=== PATIENT | female | born 1975 | race Caucasian/White ===

== ENCOUNTER → 2018-03-06 13:59 | Outpatient (CLI) | payer OTHER, SELFPAY ==
[2018-03-11 11:31] LABS: HPV Reflexed? NOT INDICATED
--- OUTSIDE RECORDS SUMMARY | 2018-06-10 05:09 | XMS RPT_ITS ---
:1975 Author Organization [facility] Care Team Providers Name Role Phone Margarette Cadena Attending Unavailable Primay Care Physicia, No Primary Care Unavailable PROBLEMS PROBLEMS DATE TYPE CONDITION / CODE ATTENDING STATUS SOURCE 03/06/2018 Unknown Z12.4 - Margarette Cadena Active [place] Encounter for Community screening for Hospital malignant Repository neoplasm of cervix / Z12.4(ICD-10) PROCEDURES PROCEDURES No Procedure Records FoundRESULTS RESULTS PAP I-G W/RFX HRHPV Collected: 03/06/2018 Status: F Source: [facility] 1:15 PM [facility] REPOSITORY Order Comment: CYTOLOGY INFORMATION: - CLINICAL INFORMATION: - DATE LMP/MENOPAUSE: 02/18/18 LMP - COLLECTION VIAL: Thin Prep Vial - CURVE SAW OPERATOR SOURCE: CERVICAL/ENDOCERVICAL - COLLECTION TECHNIQUE: BRUSH/SPATULA Specimen Comment: [id number] Specimen Comment: Source.............Cervix;Endocervix Specimen Comment: LMP / Prev Treat...[id number] Specimen Comment: No. of containers..01 ThinPrep Vial TYPE CODE TESTS RESULT OUT OF RANGE REFERENCE UNITS LAB L7400.0800 . Normal DIAGN Comment Result Comment: NEGATIVE FOR INTRAEPITHELIAL LESION AND MALIGNANCY. LAB L7400.0900 . Normal ADEQ Comment Result Comment: Satisfactory for evaluation. No endocervical component is identified. LAB L7400.1400 . Normal PERFORM Comment Result Comment: Radha Mistry Pricing Coordinator LAB L7400.2575 . Normal TEST METHOD Comment Result Comment: This liquid based ThinPrep(R) pap test was screened with the use of an image guided system. LAB L7400.2600 . Normal . COMM LAB L7400.2700 . Normal PAPSMR Comment Result Comment: The Pap smear is a screening test designed to aid in the detection of premalignant and malignant conditions of the uterine cervix. It is not a diagnostic procedure and should not be used as the sole means of detecting cervical cancer. Both false-positive and false-negative reports do occur. LAB L7400.2800 . Normal HPV RFLX Comment Result Comment: The HPV DNA reflex criteria were not met with this specimen result therefore, no HPV testing was performed. Performed at: - [facility] [id number] [place] Dipper: Amanda Mcguire MD, Phone: [phone] Performed By: #### L7400.0350 #### [facility] (refer to report for specific site) refer to report for address and phone number ALLERGIES ALLERGIES No Allergies Records FoundENCOUNTERS ENCOUNTERS ADMIT/DISCHARGE ACCOUNT ADMITTING ENCOUNTER LOCATION SOURCE NUMBER CLASS 03/06/2018 [id number] Ambulatory [place] [facility] ing:[facility] Repository PAYERS PAYERS ENCOUNTER GUARANTOR PAYER SUBSCRIBER SOURCE 03/06/2018 [place] [id number] [facility] [id number] Number: Repository [id number]: [phone] (HP) Date:[id number] [address] [place], [place] [id number]: 03/06/2018 [facility]SELF PAY [facility] Number: Effective Repository Date:2018-03-06
== END ==
PROVIDERS: Visit Provider Obstetrics & Gynecology
DX: Z12.4 Encounter for screening for malignant neoplasm of cervix (principal)
CPT/HCPCS: 88175; G0145

== ENCOUNTER → 2018-05-05 07:06 | Outpatient (CLI) | payer OTHER, SELFPAY ==
--- NOTE | 2018-05-05 07:09 | BI_ITS ---
MAMMOGRAPHY - BILATERAL SCREENING REASON FOR EXAM: Female, 42 years old. Routine annual screening examination. PERTINENT HISTORY: Aunt with breast cancer. TECHNIQUE: Digital bilateral breast kristin (3D mammographic acquisition) in the CC and MLO projections. 2-D mediolateral oblique (MLO) and craniocaudad (CC) views of both breasts were obtained. CAD: Full Field Digital Mammography with Computer Added Detection was performed. COMPARISON: Comparison is made with prior study dated July 22, 2016 and May 17, 2015. FINDINGS: Breast Composition: The breasts are heterogeneously dense, which may obscure small masses. There are no dominant masses or suspicious calcifications. No other significant abnormalities are identified. There has been no significant change since the prior study. BI/SCREENING MAMM (CAD), BILAT IMPRESSION: Stable bilateral screening mammogram. Yearly follow-up mammogram recommended. (A) ASSESSMENT CATEGORY: BIRADS Category 1: Negative. A letter regarding these results will be sent to the patient by the facility within 30 days. Approximately 10% of breast cancers are not detected by mammography. A normal mammogram should not delay biopsy of a clinically suspicious abnormality. [id number] Electronically Signed: Juan R Dimas MD at 9:02 EST , Service support ,
== END ==
PROVIDERS: Referring Provider Obstetrics & Gynecology; Visit Provider Obstetrics & Gynecology
DX: Z12.31 Encounter for screening mammogram for malignant neoplasm of breast (principal)
CPT/HCPCS: 77063; 77067

== ENCOUNTER → 2021-07-30 | Outpatient (CLI) | payer OTHER, SELFPAY ==
[2021-07-30 12:29] LABS: Absolute Lymphocyte Count 1.14 X10^3/uL (0.83-4.51); Absolute Neutrophil Count 2.5 X10^3/uL (2.0-7.7); Basophil# 0.06 X10^3/uL; Basophil% 1.4 % (0-1); Eosinophils% 2.4 % (0-5); Hematocrit 40.1 % (37-47); Hemoglobin 13.2 g/dL (12.0-15.0); Lymphocyte # 1.14 X10^3/ul (0.83-4.51); Lymphocyte % 26.9 % (19-41); Mean Corp Hgb Conc 32.9 g/dL (32-36); Mean Corpuscular Hgb 31.3 pg (27.0-32.0); Mean Platelet Vol. 10.5 fl (6.2-12.0); Monocyte# 0.39 X10^3/uL; Monocyte% 9.2 % (0-10); NRBC Flagged by Analyzer 0 % (0-5); Neutrophil # 2.54 X10^3/uL (2.7-7.7); Neutrophil % 59.9 % (47-70); Platelet Count 246 K/mm3 (150-450); RBC Distribution Width CV 12.1 % (11.6-14.6); RBC Distribution Width SD 41.9 fl (35.1-43.9); Red Blood Count 4.22 M/mm3 (4.2-5.4); White Blood Count 4.2 K/mm3 (4.4-11.0)
[2021-07-30 12:46] LABS: Vitamin B12 472 pg/mL (211-911); Vitamin D,25 Hydroxy 25.9 ng/mL
[2021-07-30 14:10] LABS: ALB/GLOB Ratio 1.2 RATIO (0.9-2.4); AST(SGOT) 18 U/L (15-37); Alanine Aminotransfer ALT/SGPT 27 U/L (13-56); Albumin, Serum 3.9 g/dL (3.2-5.0); Alkaline Phosphatase 63 U/L (45-117); Anion Gap 5 (5-15); BUN 10 mg/dL (7-18); BUN/Creat Ratio 12.9 RATIO (10-20); Calcium,Total 8.9 mg/dL (8.5-10.1); Chloride 110 mmol/L (98-107); Creatinine, Serum 0.77 mg/dL (0.55-1.02); EST Glomerular Filtration Rate 85 mL/min (>60); Est Glom Filt Rate - Afr Amer 103 mL/min (>60); Globulin 3.2 g/dL (2.2-4.2); Glucose 94 mg/dL (74-106); Potassium 4.2 mmol/L (3.5-5.1); Protein, Total 7.1 g/dL (6.4-8.2); Sodium Level 141 mmol/L (136-145); Thyroid Stim Hormone (TSH) 0.88 uIU/mL (0.358-3.74)
== END | disposition home or self-care (01) ==
LOC: BIMLAB 10:51
PROVIDERS: PCP Internal Medicine; Visit Provider Internal Medicine
DX: F32.A Depression, unspecified (principal); F41.9 Anxiety disorder, unspecified; E55.9 Vitamin D deficiency, unspecified
CPT/HCPCS: 36415; 80053; 82306; 82607; 84443; 85025

== ENCOUNTER → 2021-10-02 | Outpatient (CLI) | payer OTHER, SELFPAY ==
[2021-10-07 10:36] LABS: HPV APTIMA, High Risk Negative (Negative)
== END | disposition home or self-care (01) ==
LOC: LABSPEC 16:09
PROVIDERS: PCP Internal Medicine; Visit Provider Nurse Practitioner Women's Health
DX: Z01.419 Encounter for gynecological examination (general) (routine) without abnormal findings (principal)
CPT/HCPCS: 87624; 88175; G0145

== ENCOUNTER → 2021-11-22 | Outpatient (CLI) | payer OTHER, SELFPAY ==
--- NOTE | 2021-11-22 13:11 | BI_ITS ---
MAMMOGRAPHY - BILATERAL SCREENING REASON FOR EXAM: Female, 45 years old. Routine annual screening examination. PERTINENT HISTORY: Aunt with breast cancer. TECHNIQUE: Digital bilateral breast gabino (3D mammographic acquisition) in the CC and MLO projections. 2-D mediolateral oblique (MLO) and craniocaudad (CC) views of both breasts were obtained. CAD: Full Field Digital Mammography with Computer Added Detection was performed. COMPARISON: Comparison is made with prior study of 05/05/2018 and 07/22/2016. FINDINGS: Breast Composition: The breasts are heterogeneously dense, which may obscure small masses. There are no dominant masses or suspicious calcifications. No other significant abnormalities are identified. There has been no significant change since the prior study. BI/SCRN MAMM (CAD)W/GABINO BILAT IMPRESSION: Stable bilateral screening mammogram. Yearly follow-up mammogram recommended. (A) ASSESSMENT CATEGORY: BIRADS Category 1: Negative. A letter regarding these results will be sent to the patient by the facility within 30 days. Approximately 10% of breast cancers are not detected by mammography. A normal mammogram should not delay biopsy of a clinically suspicious abnormality. [id number] Electronically Signed: Juan R Dimas MD at 13:49 EDT ,
== END | disposition home or self-care (01) ==
LOC: OPBI 13:10
PROVIDERS: PCP Internal Medicine; Visit Provider Nurse Practitioner Women's Health
DX: Z12.31 Encounter for screening mammogram for malignant neoplasm of breast (principal)
CPT/HCPCS: 77063; 77067

== ENCOUNTER → 2022-11-13 | Outpatient (CLI) | payer OTHER, SELFPAY ==
[2022-11-23 03:07] LABS: Testosterone Free 0.9 pg/mL (0.0-4.2)
== END | disposition home or self-care (01) ==
LOC: PAVLAB 15:15
PROVIDERS: PCP Internal Medicine; Referring Provider Nurse Practitioner Women's Health; Visit Provider Nurse Practitioner Women's Health
DX: L68.0 Hirsutism (principal)
CPT/HCPCS: 36415; 82627; 84402; 82626

== ENCOUNTER → 2022-12-19 | Outpatient (CLI) | payer OTHER, SELFPAY ==
--- NOTE | 2022-12-19 07:53 | BI_ITS ---
MAMMOGRAPHY - BILATERAL SCREENING REASON FOR EXAM: Female, 47 years old. Routine annual screening examination. PERTINENT HISTORY: Aunt with breast cancer. TECHNIQUE: Digital bilateral breast gabino (3D mammographic acquisition) in the CC and MLO projections. 2-D mediolateral oblique (MLO) and craniocaudad (CC) views of both breasts were obtained. CAD: Full Field Digital Mammography with Computer Added Detection was performed. COMPARISON: Comparison is made with prior examination of November 22, 2021 and May 05, 2018. FINDINGS: Breast Composition: The breasts are heterogeneously dense, which may obscure small masses. There are no dominant masses or suspicious calcifications. No other significant abnormalities are identified. There has been no significant change since the prior study. BI/SCRN MAMM (CAD)W/GABINO BILAT IMPRESSION: Stable bilateral screening mammogram. Yearly follow-up mammogram recommended. (A) ASSESSMENT CATEGORY: BIRADS Category 1: Negative. A letter regarding these results will be sent to the patient by the facility within 30 days. Approximately 10% of breast cancers are not detected by mammography. A normal mammogram should not delay biopsy of a clinically suspicious abnormality. [id number] Electronically Signed: Juan R Dimas MD at 10:38 EDT ,
== END | disposition home or self-care (01) ==
LOC: OPBI 07:50
PROVIDERS: PCP Internal Medicine; Referring Provider Nurse Practitioner Women's Health; Visit Provider Nurse Practitioner Women's Health
DX: Z12.31 Encounter for screening mammogram for malignant neoplasm of breast (principal); Z80.3 Family history of malignant neoplasm of breast
CPT/HCPCS: 77063; 77067

== ENCOUNTER → 2023-11-25 | Outpatient (CLI) | payer OTHER, SELFPAY ==
[2023-11-25 12:25] LABS: Absolute Lymphocyte Count 1.42 X10^3/uL (0.83-4.51); Absolute Neutrophil Count 3.2 X10^3/uL (2.0-7.7); Basophil# 0.06 X10^3/uL; Basophil% 1.2 % (0-1); Eosinophils% 1.9 % (0-5); Hematocrit 38.2 % (37-47); Hemoglobin 12.7 g/dL (12.0-15.0); Lymphocyte # 1.42 X10^3/ul (0.83-4.51); Lymphocyte % 27.3 % (19-41); Mean Corp Hgb Conc 33.2 g/dL (32-36); Mean Corpuscular Hgb 31.1 pg (27.0-32.0); Mean Corpuscular Volume 93.4 fL (81-99); Mean Platelet Vol. 10.4 fl (6.2-12.0); Monocyte# 0.42 X10^3/uL; Monocyte% 8.1 % (0-10); NRBC Flagged by Analyzer 0 % (0-5); Neutrophil # 3.19 X10^3/uL (2.7-7.7); Neutrophil % 61.3 % (47-70); Platelet Count 221 K/mm3 (150-450); RBC Distribution Width SD 41.1 fl (35.1-43.9); Red Blood Count 4.09 M/mm3 (4.2-5.4); White Blood Count 5.2 K/mm3 (4.4-11.0)
[2023-11-25 12:38] LABS: Vitamin D,25 Hydroxy 31.8 ng/mL
[2023-11-25 12:51] LABS: ALB/GLOB Ratio 1.1 RATIO (0.9-2.4); AST(SGOT) 14 U/L (15-37); Alanine Aminotransfer ALT/SGPT 19 U/L (13-56); Albumin, Serum 3.7 g/dL (3.2-5.0); Alkaline Phosphatase 82 U/L (45-117); Anion Gap 3 (5-15); BUN 10 mg/dL (7-18); Calcium,Total 9.4 mg/dL (8.5-10.1); Chloride 109 mmol/L (98-107); Creatinine, Serum 0.67 mg/dL (0.55-1.02); EST Glomerular Filtration Rate 100 mL/min (>60); Est Glom Filt Rate - Afr Amer 121 mL/min (>60); Globulin 3.4 g/dL (2.2-4.2); Glucose 90 mg/dL (74-106); Potassium 3.9 mmol/L (3.5-5.1); Protein, Total 7.1 g/dL (6.4-8.2); Sodium Level 139 mmol/L (136-145); T4 Free Direct 0.96 ng/dL (0.76-1.46)
== END | disposition home or self-care (01) ==
PROVIDERS: PCP Nurse Practitioner Family; Referring Provider Nurse Practitioner Family; Visit Provider Nurse Practitioner Family
DX: Z13.21 Encounter for screening for nutritional disorder (principal); N91.2 Amenorrhea, unspecified; Z13.29 Encounter for screening for other suspected endocrine disorder
CPT/HCPCS: 36415; 80053; 82306; 82533; 84439; 84443; 85025

== ENCOUNTER → 2023-12-22 | Outpatient (CLI) | payer OTHER, SELFPAY ==
--- NOTE | 2023-12-22 09:56 | BI_ITS ---
MAMMOGRAPHY - BILATERAL SCREENING 3-D TOMOSYNTHESIS REASON FOR EXAM: Female, 48 years old. screening mammogram for breast cancer PERTINENT HISTORY: No significant family history. TECHNIQUE: 2-D mammograms and 3-D Tomosynthesis of the breast (s) were performed. CAD was performed. COMPARISON: 12/19/2022 FINDINGS: The breast composition is heterogeneously dense that can obscure small breast masses. Scattered benign calcifications are seen. No dense spiculated masses or suspicious microcalcifications are identified. No architectural distortion is identified. There is no skin thickening or retraction. There has been no significant change since the prior study. BI/SCRN MAMM (CAD)W/GABINO BILAT IMPRESSION: No mammographic signs of malignancy. Routine yearly mammograms recommended. ASSESSMENT CATEGORY: BIRADS Category 1: Negative. A letter regarding these results will be sent to the patient by the facility within 30 days. FOLLOW UP RECOMMENDATION: Yearly follow up mammogram recommended. (A) Approximately 10% of breast cancers are not detected by mammography. A normal mammogram should not delay biopsy of a clinically suspicious abnormality. Electronically Signed: Jack Bradford MD at 21:18 EDT ,
== END | disposition home or self-care (01) ==
LOC: OPBI 09:56
PROVIDERS: PCP Nurse Practitioner Family; Referring Provider Nurse Practitioner Family; Visit Provider Nurse Practitioner Family
DX: Z12.31 Encounter for screening mammogram for malignant neoplasm of breast (principal)
CPT/HCPCS: 77063; 77067

== ENCOUNTER → 2024-10-25 | Outpatient (CLI) | payer SELFPAY ==
--- NOTE | 2024-10-25 17:08 | RAD_ITS ---
PROCEDURE: ELBOW MIN 3 VIEWS 10/25/2024 REASON FOR EXAM: PAIN TECHNIQUE: ELBOW MIN 3 VIEWS COMPARISON: None. FINDINGS: Normal radiocapitellar articulation. Normal ulnotrochlear articulation. Normal distal humerus and epicondyles. Normal proximal ulna and olecranon process. Normal proximal radius. RAD/Elbow min 3 Views IMPRESSION: No evidence for acute abnormality. Reading Location: [facility]
[2024-10-25 17:09] LABS: Hematocrit 34.8 % (37-47); Hemoglobin 11.5 g/dL (12.0-15.0); Immature Granulocytes Count 0.020 X10^3/uL (0.0-0.0); Mean Corp Hgb Conc 33.0 g/dL (32-36); Mean Corpuscular Volume 94.1 fL (81-99); Mean Platelet Vol. 10.0 fl (6.2-12.0); NRBC Flagged by Analyzer 0 % (0-5); Platelet Count 273 K/mm3 (150-450); RBC Distribution Width CV 12.8 % (11.6-14.6); RBC Distribution Width SD 44.0 fl (35.1-43.9); Red Blood Count 3.70 M/mm3 (4.2-5.4); White Blood Count 6.6 K/mm3 (4.4-11.0)
--- NOTE | 2024-10-25 17:10 | RAD_ITS ---
PROCEDURE: KNEE 4 OR MORE VIEWS 10/25/2024 REASON FOR EXAM: PAIN TECHNIQUE: KNEE 4 OR MORE VIEWS COMPARISON: None. FINDINGS: Prominent prepatellar/infrapatellar soft tissue edema and swelling. Normal medial femorotibial compartment. Normal lateral femorotibial compartment. Normal patellofemoral articulation. Normal visualized distal femur. Normal visualized proximal tibia and fibula. Normal proximal tibiofibular articulation. RAD/Knee 4 or More Views IMPRESSION: Prominent prepatellar/infrapatellar soft tissue edema and swelling. Reading [facility]
[2024-10-25 18:01] LABS: AST(SGOT) 19 U/L (<=31); Alanine Aminotransfer ALT/SGPT 9 U/L (<=34); Albumin, Serum 4.7 g/dL (3.5-5.0); Alkaline Phosphatase 115 U/L (35-104); Anion Gap 11 (5-15); BUN 10 mg/dL (4-19); BUN/Creat Ratio 13.3 RATIO (10-20); Calcium,Total 9.4 mg/dL (7.6-11.0); Carbon Dioxide 24.5 mmol/L (21.0-32.0); Chloride 106 mmol/L (98-108); Globulin 2.6 g/dL (2.2-4.2); Glucose 84 mg/dL (70-99); Potassium 4.0 mmol/L (3.3-5.1)
--- OUTSIDE RECORDS SUMMARY | 2024-10-25 22:59 | XMS RPT_ITS | CCD ---
Author Organization [facility] Care Team Providers Care Building Pressure Washer Name Role Phone Claudia Sin Unavailable Gravius, Neisha Unavailable Unavailable Unavailable Unavailable Care Physician, No Primary Referring Provider Un available Dr. Becky Pereyra Primary Care Provider [phone] Dr. Becky Pereyra Attending Provider [phone] Vanesa METER REPAIR SHOP SUPERVISOR, METER REPAIR SHOP SUPERVISOR-Mallika Cordoba Attending Provider [phone] Jenni Greene CNP Unavailable Jenni Greene CNP Unavailable Gravius BLACK OXIDE COATING EQUIPMENT TENDER, Neisha Unavailable Unavailable Claudia Sin DO Unavailable Unavailable Unavailable Friend, Dr. Schwab Unavailable [phone] Jinny RAMON, Alecia Unavailable Unavailable Jenni Greene CNP Attending Unavailable Jenni Greene CNP Consulting Unavailable Zulma Godinez MA Unavailable Unavailable Dr. Becky Pereyra Primary Care Provider [phone] Dr. Becky Pereyra Referring Provider [phone] Vanesa METER REPAIR SHOP SUPERVISOR, SHAHRAM-Mallika Cordoba Attending Provider [phone] Sue Jay Attending Unavailable Becky Pereyra Referring Unavailable Becky Pereyra Primary Care Unavailable Sue Jay Attending Unavailable Jenni Greene Primary Care Unavailable Sue Jay Referring Unavailable Sue Jay Referring Unavailable Sue Jay Attending Unavailable Jenni Greene Primary Care Unavailable Allergies Allergy Classification Reported Allergen(s) Allergy Type Date of Onset Reaction(s) Facility (1 source) Latex Propensity to adverse reactions 3 Rash [facility] (1 source) Latex Drug allergy (disorder) 4 [facility] Repository Medications Current Medications Medication Drug Class(es) Dates Sig (Normalized) Sig (Original) DULoxetine 60 mg delayed release oral capsule (20 sources) Serotonin and Norepinephrine Reuptake Inhibitor Start: 11-13-2022 take 1 capsule by mouth once daily Duloxetine (Cymbalta) 60 mg capsule,delayed release(DR/EC) Active 60 MG PO DAILY November 13, 2022 12:00am Start: 05-15-2022 End: 05-15-2022 Cymbalta 60 mg oral capsule, delayed release (enteric coated) [address] Part qhs for 0 days Quantity: 30 {Capsule} Refills: 0 Ordered: 15-May-2022 Alecia Stearns LPN Start : 15-May-2022 End : 15-May-2022 Inactive Start: 06-13-2010 End: 10-19-2010 CYMBALTA, 60MG (Oral Capsule Delayed Release Particles) [address] Part qhs for 0 days Quantity: 30 {Capsule_DR_Part} Refills: 0 Ordered: 19-Oct-2010 Ying Monroe Start : 13-Jun-2010 End : 19-Oct-2010 Inactive Start: 05-17-2010 End: 06-13-2010 CYMBALTA, 30MG (Oral Capsule Delayed Release Particles) [address] Part qd for 0 days Quantity: 7 {Capsule_DR_Part} Refills: 0 Ordered: 13-Jun-2010 Sinai Ward RN Start : 17-May-2010 End : 13-Jun-2010 Inactive Completed/Discontinued Medications Medication Drug Class(es) Dates Sig (Normalized) Sig (Original) citalopram 40 mg oral tablet (7 sources) Serotonin Reuptake Inhibitor Start: 11-05-2021 End: 11-13-2022 take 40 mg by mouth once daily Citalopram Discontinued 40 MG PO DAILY October 28, 2022 12:27pm November 13, 2022 2:54pm Start: 10-02-2021 End: 11-05-2021 take 20 mg by mouth once daily Citalopram Discontinued 20 MG PO DAILY October 02, 2021 12:00am November 05, 2021 11:38am ergocalciferol 1.25 mg oral capsule (10 sources) Provitamin D2 Compound Start: 05-21-2010 End: 03-12-2011 take 1 capsule by mouth every week [id number] (Oral Capsule) 1 Capsule q wk for 0 days Quantity: 4 {Capsule} Refills: 3 Ordered: 12-Mar-2011 HEAVEN Ingram LPN Start : 21-May-2010 End : 12-Mar-2011 Inactive esomeprazole 40 mg delayed release oral capsule (10 sources) Proton Pump Inhibitor Start: 03-14-2011 End: 03-29-2011 NEXIUM, 40MG (Oral Capsule Delayed Release) [address] qd for 15 days Refills: 0 Ordered: 01-Apr-2011 Claudia Sin DO Start : 14-Mar-2011 End : 29-Mar-2011 Inactive Xhmlcwh-Qtvj-Tzd-Lelia er-Hops-Lm (1 source) Start: 06-07-2022 End: 11-13-2022 Zcjhznq-Metw-Dfx-V zhhv-Dcyf-Vp Discontinued CAP PO June 07, 2022 12:00am November 13, 2022 2:47pm progesterone 200 mg oral capsule (10 sources) Progesterone PROMETRIUM, 200M G (Oral Capsule) uad prn (200 MG) Inactive Comments: Dr. Cadena Comment on above: Dr. Cadena S-Adenosylmethionine -U72-Hm-C6 (2 sources) Start: 10-02-2021 End: 11-13-2022 S-Adenosylmethioni fu-L51-Ax-B6 Discontinued TABLET PO October 02, 2021 12:00am November 13, 2022 2:47pm Start: 10-02-2021 S-Adenosylmeth uiehlg-O35-Zh-B6 Active TABLET PO October 02, 2021 12:00am sertraline 25 mg oral tablet (10 sources) Serotonin Reuptake Inhibitor Start: 10-19-2010 End: 03-12-2011 take 1 tablet by mouth once daily ZOLOFT, 25MG (Oral Tablet) 1 Tablet QD for 0 days Quantity: 30 {Tablet} Refills: 3 Ordered: 12-Mar-2011 HEAVEN Ingram LPN Start : 19-Oct-2010 End : 12-Mar-2011 Inactive vitamin b12 1 mg oral capsule (2 sources) Vitamin B12 Start: 10-02-2021 End: 11-13-2022 take 1000 ug by mouth every month Cyanocobalamin (Vitamin B-12) Discontinued 1000 MCG PO EVERY MONTH October 02, 2021 12:00am November 13, 2022 2:47pm NEGATED: Highlighted row has not occurred!drug or medication (5 sources) No Known Histori dwight Medications Problems Active Problems Problem Classification Problem Date Documented Date Episodic/Chronic Abdominal pain (20 sources) Generalized abdominal pain; Translations: [Abdominal pain, acute, generalized] Resolved: 05-14-2022 09-02-2018 Episodic Comment on above: ruq and epigastrum - - denies any more stress and still nausea and pain assoc wiht foodceliac and specialty lab still pending Anxiety disorders (20 sources) Acute stress disorder; Translations: [Mixed anxiety and depressive disorder] 09-02-2018 Chronic Malaise and fatigue (20 sources) Fatigue; Translations: [Fatigue] 09-02-2018 Episodic Comment on above: pt on hormones and a drenal builders with shriner-- that helped in past so will resume but right now so nausea hasnt taken any pills Menstrual disorders (1 source) Amenorrhea, unspecified; Translations: [Amenorrhea, unspecified] Onset: 11-25-2023 Chronic Mood disorders (20 sources) Depressive disorder; Translations: [Depressive disorder] 09-02-2018 Chronic Comment on above: has been stable. Win ter seems to be worse. Labile. get some vitamin lev els, keep on celexa - sent refill-no med adjustments now, but will consider if does not improve. no suicidal ideationshas been stable. Winter seems to be worse. Labile. Nutritional deficiencies (20 sources) Vitamin D deficiency; Translations: [Vitamin D deficiency, unspecified] 09-02-2018 Chronic Nutritional deficiencies (3 sources) Vitamin deficiency; Translations: [Vitamin deficiency, unspecified] 07-09-2021 Episodic Other ear and sense organ disorders (2 sources) Bilateral hearing loss; Translations: [Hearing loss of both ears due to cerumen impaction] 09-16-2018 Chronic Other ear and sense organ disorders (14 sources) Otalgia, bilateral; Translations: [Bilateral earache] Resolved: 05-14-2022 09-16-2018 Episodic Other ear and sense organ disorders (10 sources) Bilateral hearing loss; Translations: [Hearing loss of both ears due to cerumen impaction] Resolved: 05-14-2022 09-16-2018 Episodic Other ear and sense organ disorders (2 sources) Excessive cerumen in ear canal ; Translations: [Ceruminosis, bilateral] 07-24-2022 Episodic Comment on above: looked in ears post multiple irrigations. clear but appears to have possible cholesteatoma vs scarring? some bubbles but suspect d/t solution infused. call if any issues Other hematologic conditions (6 sources) History of anemia; Translations: [History of anemia] 05-15-2022 Episodic Other non-traumatic joint disorders (4 sources) Hip pain; Translations: [Hip pain] 05-17-2022 Episodic Comment on above: conservative mgmt - try stretching, light exercise, core strengthening, if still bothering her then would get baseline lumbar and hip xraystylenol and ibuprofen for pain if no contraindications. Other nutritional; endocrine; and metabolic disorders (7 sources) Overweight in adulthood with body mass index of 25 or more but less than 30; Translations: [BMI 25.0-25.9,adult] 05-15-2022 Episodic Other screening for suspected conditions (not mental disorders or infectious disease) (20 sources) Patient encounter status; Translations: [Encounter for screening for malignant neoplasm of colon] Onset: 11-25-2023 09-16-2018 Episodic Other skin disorders (1 source) Hirsutism; Translations: [Hirsutism] 11-13-2022 Episodic Other skin disorders (1 source) Hirsutism; Translations: [Hirsutism] 11-13-2022 Episodic Residual codes; unclassified (19 sources) Body mass index (BMI) 23.0-23.9, adult; Translations: [Body mass index 20-24 - normal] Resolved: 05-15-2022 09-02-2018 Episodic Residual codes; unclassified (3 sources) H/O: miscarriage; Translations: [Personal history of other complications of , childbirth and the puerperium] 07-30-2021 Episodic Residual codes; unclassified (3 sources) History of operative procedure on foot; Translations: [Other specified postprocedural states] 07-30-2021 Episodic Residual codes; unclassified (3 sources) H/O: stillbirth; Translations: [Personal history of other complications of , childbirth and the puerperium] 07-30-2021 Episodic Screening and history of mental health and substance abuse codes (7 sources) Ex-smoker; Translations: [Former smoker] 05-15-2022 Episodic Spondylosis; intervertebral disc disorders; other back problems (20 sources) Lumbago; Translations: [Low back pain without sciatica, unspecified back pain laterality] 09-02-2018 Episodic Comment on above: cx negative from dr prisca valle [facility] [place] Substance-related disorders (20 sources) Smoker; Translations: [Nondependent mixed drug abuse, episodic] Resolved: 05-15-2022 09-02-2018 Chronic Comment on above: etoh and cig Past or Other Problems Problem Classification Problem Date Documented Da te Episodic/Chronic Coronary atherosclerosis and other heart disease (5 sources) Coronary atherosclerosis and other heart disease Mood disorders (15 sources) Mood disorders Unclassified (20 sources) Unclassified (10 sources) Abdominal Pain,General (789.07) Unclassified (20 sources) VITAMIN D DEFICIENCY, NOS (268.9) Unclassified (10 sources) Pregnancies (); Translations: [Pregnancies ()] 09-02-2018 Comment on above: 5. Unclassified (5 sources) Screening status; Translations: [Screening for hyperlipidemia] 09-02-2018 Unclassified (10 sources) Abortions/Miscarriages; Translations: [Abortions/Miscarriages ] 09-02-2018 Comment on above: 2. Unclassified (3 sources) BMI 23.0-23.9, adult; Translations: [Body mass index 20-24 - normal] 09-16-2018 Unclassified (2 sources) Stress reaction Unclassified (2 sources) Substance abuse, binge pattern Unclassified (2 sources) Hearing loss of both ears due to cerumen impaction Results Test Name Value Interpretation Reference Range Facility SCRN MAMM (CAD)Ariel/GABINO veronica 12-22-2023 SCRN MAMM (CAD)W/GABINO KRAUSE [facility] Services [address] [place], [place] [id number] SCRN MAMM (CAD)W/GABINO KRAUSE MR#: [id number] Acct: [id number] Name: TERE BANSAL Rep #: [id number] : 1975 F 48 From: Jack Bradford MD PCP: ART Jackson Status: REG CLI Study: SCRN MAMM (CAD)W/GABINO BILAT Date of Exam: 11/24 Exam# [id number] Ordering Dr: Sue Jay [id number] MAMMOGRAPHY - BILATERAL SCREENING 3-D TOMOSYNTHESIS REASON FOR EXAM: Female, 48 years old. screening mammogram for breast cancer PERTINENT HISTORY: No significant family history. TECHNIQUE: 2-D mammograms and 3-D Tomosynthesis of the breast (s) were performed. CAD was performed. COMPARISON: 12/19/2022 FINDINGS: The breast composition is heterogeneously dense that can obscure small breast masses. Scattered benign calcifications are seen. No dense spiculated masses or suspicious microcalcifications are identified. No architectural distortion is identified. There is no skin thickening or retraction. There has been no significant change since the prior study. BI/SCRN MAMM (CAD)W/GABINO BILAT IMPRESSION: No mammographic signs of malignancy. Routine yearly mammograms recommended. ASSESSMENT CATEGORY: BIRADS Category 1: Negative. A letter regarding these results will be sent to the patient by the facility within 30 days. FOLLOW UP RECOMMENDATION: Yearly follow up mammogram recommended. (A) Approximately 10% of breast cancers are not detected by mammography. A normal mammogram should not delay biopsy of a clinically suspicious abnormality. Electronically Signed: Jack Bradford MD at 21:18 EDT , CC: ART Jay; ART Greene Bleach Maker: Signed Normal [facility] CBC W/Diff, Automatedon 09-0 Absolute Lymph 1.42 X10 3/uL Normal 0.83-4.51 [facility] Comment on above: Performed By: #### L 509.6000, L506.1000, L506.0400, L500.4050, L501.9520, L100.0100 #### [facility] [address] [place], [address] Absolute Neut 3.2 X10 3/uL Normal 2.0-7.[address] [facility] Comment on above: Performed By: #### L 509.6000, L506.1000, L506.0400, L500.4050, L501.9520, L100.0100 #### [facility] [address] [place], [address] Basophils/100 WBC (Bld) 1.2 % High 0-1 [facility] Comment on above: Performed By: #### L 509.6000, L506.1000, L506.0400, L500.4050, L501.9520, L100.0100 #### [facility] [address] [place], [address] Eosinophils/100 WBC (Bld) 1.9 % Normal 0-5 [facility] Comment on above: Performed By: #### L 509.6000, L506.1000, L506.0400, L500.4050, L501.9520, L100.0100 #### [facility] [address] [place], [address] Erythrocyte distribution width (RBC) [Ratio] 12.0 % Normal 11.6-14.6 [facility] Comment on above: Performed By: #### L 509.6000, L506.1000, L506.0400, L500.4050, L501.9520, L100.0100 #### [facility] [address] [place], [address] Hematocrit (Bld) [Volume fraction] 38.2 % Normal 37-[address] [facility] Comment on above: Performed By: #### L 509.6000, L506.1000, L506.0400, L500.4050, L501.9520, L100.0100 #### [facility] [address] [place], [address] Hemoglobin (Bld) [Mass/Vol] 12.7 g/dL Normal 12.0-15.0 [facility] Comment on above: Performed By: #### L 509.6000, L506.1000, L506.0400, L500.4050, L501.9520, L100.0100 #### [facility] [address] [place], [address] IG% 0.200 Normal 0.0-0.[address] [facility] Comment on above: Result Comment: IG% - Immature Granulocytes (promyelocytes, myelocytes and metamyelocytes) > 1% indicates that a LEFT SHIFT is Present. Performed By: #### L 509.6000, L506.1000, L506.0400, L500.4050, L501.9520, L100.0100 #### [facility] [address] [place], [address] Lymphocytes/100 WBC (Bld) 27.3 % Normal 19-41 [facility] Comment on above: Performed By: #### L 509.6000, L506.1000, L506.0400, L500.4050, L501.9520, L100.0100 #### [facility] [address] [place], [address] MCH (RBC) [Entitic mass] 31.1 pg Normal 27.0-32.0 [facility] Comment on above: Performed By: #### L 509.6000, L506.1000, L506.0400, L500.4050, L501.9520, L100.0100 #### [facility] [address] [place], [address] MCHC (RBC) [Mass/Vol] 33.2 g/dL Normal 32-36 [facility] Comment on above: Performed By: #### L 509.6000, L506.1000, L506.0400, L500.4050, L501.9520, L100.0100 #### [facility] [address] [place], [address] MCV (RBC) [Entitic vol] 93.4 fL Normal 81-99 [facility] Comment on above: Performed By: #### L 509.6000, L506.1000, L506.0400, L500.4050, L501.9520, L100.0100 #### [facility] [address] [place], [address] Monocytes/100 WBC (Bld) 8.1 % Normal 0-10 [facility] Comment on above: Performed By: #### L 509.6000, L506.1000, L506.0400, L500.4050, L501.9520, L100.0100 #### [facility] [address] [place], [address] Neutrophils/100 WBC (Bld) 61.3 % Normal 47-70 [facility] Comment on above: Performed By: #### L 509.6000, L506.1000, L506.0400, L500.4050, L501.9520, L100.0100 #### [facility] [address] [place], [address] Nucleated RBC (Bld) [#/Vol] 0 10*3/uL Normal 0-5 [facility] Comment on above: Performed By: #### L 509.6000, L506.1000, L506.0400, L500.4050, L501.9520, L100.0100 #### [facility] [address] [place], [address] Platelet mean volume (Bld) [Entitic vol] 10.4 fL Normal 6.2-12.0 [facility] Comment on above: Performed By: #### L 509.6000, L506.1000, L506.0400, L500.4050, L501.9520, L100.0100 #### [facility] [address] [place], [address] Platelets (Bld) [#/Vol] 221 10*3/uL Normal 150-450 [facility] Comment on above: Performed By: #### L 509.6000, L506.1000, L506.0400, L500.4050, L501.9520, L100.0100 #### [facility] [address] [place], [address] RBC (Bld) [#/Vol] 4.09 10*6/uL Low 4.2-5.4 [facility] Comment on above: Performed By: #### L 509.6000, L506.1000, L506.0400, L500.4050, L501.9520, L100.0100 #### [facility] [address] [place], [address] RDW SD 41.1 fl Normal 35.1-43.[address] [facility] Comment on above: Performed By: #### L 509.6000, L506.1000, L506.0400, L500.4050, L501.9520, L100.0100 #### [facility] [address] [place], [address] WBC (Bld) [#/Vol] 5.2 10*3/uL Normal 4.4-11.0 [facility] Comment on above: Performed By: #### L 509.6000, L506.1000, L506.0400, L500.4050, L501.9520, L100.0100 #### [facility] [address] [place], [address] CORTISOL SERUMon 11-25-2023 CORTISOL 5.70 ug/dL Normal 3.44-22.[address] [facility] Comment on above: Result Comment: Adul t (AM) 5.27 - 22.45 ug/dL Adult (PM) 3.44 - 16.76 ug/dL Please note revised CORTISOL reference range effective 2019. Performed By: #### L 509.6000, L506.1000, L506.0400, L500.4050, L501.9520, L100.0100 #### [facility] [address] [place], [address] Comprehensive Metabolic Prof [facility] 11-25-2023 Albumin [Mass/Vol] 3.7 g/dL Normal 3.2-5.0 [facility] Comment on above: Performed By: #### L 509.6000, L506.1000, L506.0400, L500.4050, L501.9520, L100.0100 #### [facility] [address] [place], [address] Albumin/Globulin [Mass ratio] 1.1 {ratio} Normal 0.9-2.4 [facility] Comment on above: Performed By: #### L 509.6000, L506.1000, L506.0400, L500.4050, L501.9520, L100.0100 #### [facility] [address] [place], [address] ALK P 82 U/L Normal 45-[address] [facility] Comment on above: Performed By: #### L 509.6000, L506.1000, L506.0400, L500.4050, L501.9520, L100.0100 #### [facility] [address] [place], [address] ALT [Catalytic activity/Vol] 19 U/L Normal 13-56 [facility] Comment on above: Performed By: #### L 509.6000, L506.1000, L506.0400, L500.4050, L501.9520, L100.0100 #### [facility] [address] [place], [address] AST [Catalytic activity/Vol] 14 U/L Low 15-37 [facility] Comment on above: Performed By: #### L 509.6000, L506.1000, L506.0400, L500.4050, L501.9520, L100.0100 #### [facility] [address] [place], [address] Bilirubin [Mass/Vol] 0.40 mg/dL Normal 0.20-1.00 [facility] Comment on above: Result Comment: For patients on eltrombopag therapy, use of Dimension [place] TBIL is not recommended. Performed By: #### L 509.6000, L506.1000, L506.0400, L500.4050, L501.9520, L100.0100 #### [facility] [address] [place], [address] BUN/CRE 15.0 RATIO Normal 10-[address] [facility] Comment on above: Performed By: #### L 509.6000, L506.1000, L506.0400, L500.4050, L501.9520, L100.0100 #### [facility] [address] [place], [address] CA,Total 9.4 mg/dL Normal 8.5-10.[address] [facility] Comment on above: Performed By: #### L 509.6000, L506.1000, L506.0400, L500.4050, L501.9520, L100.0100 #### [facility] [address] [place], [address] Chloride [Moles/Vol] 109 mmol/L High 98-107 [facility] Comment on above: Performed By: #### L 509.6000, L506.1000, L506.0400, L500.4050, L501.9520, L100.0100 #### [facility] [address] [place], [address] CO2 [Moles/Vol] 27.0 mmol/L Normal 21.0-32.0 [facility] Comment on above: Performed By: #### L 509.6000, L506.1000, L506.0400, L500.4050, L501.9520, L100.0100 #### [facility] [address] [place], [address] Creatinine [Mass/Vol] 0.67 mg/dL Normal 0.55-1.02 [facility] Comment on above: Result Comment: The validity of the calculated GFR GFRAA in patients over 70 years has not been determined. Clinical correlation is essential. Performed By: #### L 509.6000, L506.1000, L506.0400, L500.4050, L501.9520, L100.0100 #### [facility] [address] [place], [address] EST GFR - AA 121 mL/min Normal >[address] [facility] Comment on above: Result Comment: Afri can [place] GFR Calc Performed By: #### L 509.6000, L506.1000, L506.0400, L500.4050, L501.9520, L100.0100 #### [facility] [address] [place], [address] GAP 3 Low 5-[address] [facility] Comment on above: Performed By: #### L 509.6000, L506.1000, L506.0400, L500.4050, L501.9520, L100.0100 #### [facility] [address] [place], [address] GFR/1.73 sq M.predicted among non-blacks MDRD (S/P/Bld) [Vol rate/Area] 100 mL/min/{1.73_m2} Normal >60 [facility] Comment on above: Result Comment: Non- GFR Calc Performed By: #### L 509.6000, L506.1000, L506.0400, L500.4050, L501.9520, L100.0100 #### [facility] [address] [place], [address] Globulin (S) [Mass/Vol] 3.4 g/dL Normal 2.2-4.2 [facility] Comment on above: Performed By: #### L 509.6000, L506.1000, L506.0400, L500.4050, L501.9520, L100.0100 #### [facility] [address] [place], [address] Glucose [Mass/Vol] 90 mg/dL Normal 74-106 [facility] Comment on above: Performed By: #### L 509.6000, L506.1000, L506.0400, L500.4050, L501.9520, L100.0100 #### [facility] [address] [place], [address] Potassium [Moles/Vol] 3.9 mmol/L Normal 3.5-5.1 [facility] Comment on above: Performed By: #### L 509.6000, L506.1000, L506.0400, L500.4050, L501.9520, L100.0100 #### [facility] [address] [place], [address] Sodium [Moles/Vol] 139 mmol/L Normal 136-145 [facility] Comment on above: Performed By: #### L 509.6000, L506.1000, L506.0400, L500.4050, L501.9520, L100.0100 #### [facility] [address] [place], [address] T PROT 7.1 g/dL Normal 6.4-8.[address] [facility] Comment on above: Performed By: #### L 509.6000, L506.1000, L506.0400, L500.4050, L501.9520, L100.0100 #### [facility] [address] [place], [address] Urea nitrogen [Mass/Vol] 10 mg/dL Normal 7-18 [facility] Comment on above: Performed By: #### L 509.6000, L506.1000, L506.0400, L500.4050, L501.9520, L100.0100 #### [facility] [address] [place], [address] System Development Manager Office Visit Reporton 11-25-2023 System Development Manager Office Visit Report [facility] [address], [address] [place] [address] OFFICE VISIT Date of Service: 11/25/23 MR#: [id number] Acct: [id number] Name: TERE BANSAL Rep #: [id number] : 1975 Provider: ART Ferro Age/Sex: 47/F [place] [facility] [place]: Signed Intake Vital Signs 12/10/22 10:32 11/25/23 10:48 Height 5 ft 9 in 5 ft 9 in Weight: 173 lb BMI 25.5 BP 116/69 Intake Visit Reasons: Annual (PATIENT CASE COORDINATOR) Chief Complaint: annual, menopause questions Brass Cutter Required: No Is patient in pain?: No Allergies latex Adverse Reaction (Verified 11/25/23 10:50) Rash Is last menstrual period known: Yes Last Menstrual Period: 11/11/23 Post menopausal: No Patient : No : No Control Method: none PFSH Medical History History of spontaneous History of stillbirth Anxiety and depression Vitamin D deficiency Vitamin deficiency Surgical History S/P LEEP Hx of foot surgery Family History Grandfather Myocardial infarction Grandmother Breast cancer Colon cancer Mother Hyperlipemia Father Hypertension Heart disease Myocardial infarction Cancer lung Social History household members: spouse and children number of children: 3 current occupational status: employed 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 Date Name GA/Weeks Outcome Route Bth Weight Infant Gen Labor Lgth Anesthesia Del Locatn Provider FOB Unknown Peg 2003 Unknown Pippa 2005 Unknown Chelly 2006 HPI Encounter for routine gynecological examination Details: TERE BANSAL is a 47 year old who presents for annual exam. She reports she has noticed irregular bleeding; she went 8 or 9 months without a period and then restarted on November 10. She bleed a normal menses x 7 days and no bleeding since. Last PAP: 2021; normal. History of abnormal PAP: x 24 yrs ago. Has had normal PAP's since. Last mammogram: 11/2022; normal. History of abnormal mammogram: no Colon cancer screening: None prior; open to having one completed this year. Other preventative health care screenings: Primary Care Doctor: Dr. Pereyra; Dr. Claudia Sin. Female Reproductive History Last Menstrual Period: 11/11/23 Questions: metorrhagia: No, sexually active: Yes, dyspareunia: No and PCB: No Menopausal Symptoms: Yes hot flashes (previously) and Yes night sweats (not consistently. ) ROS Const Constitutional: Reports night sweats (not consistently. ) Cardio Card: Denies chest pain Resp Resp: Denies cough or dyspnea on exertion GI GI: Denies abdominal pain, bloating, change in stool character, constipation or vomiting : Reports hot flashes (previously); Denies nipple discharge, pelvic pain, urinary urgency, vaginal discharge, vaginal dryness, vaginal odor or vaginal pruritus Skin Skin/Breast: Denies rash, breast mass, breast pain, breast skin changes or nipple discharge Psych Psych: Denies anxiety or depression Exam Const General: cooperative, healthy appearing, no acute distress and well developed Nutritional Appearance: well nourished Orientation: alert, oriented to person and oriented to place [facility] Head: normal to inspection Ears: hearing grossly normal bilaterally and external ears normal Nose: external nose normal Face and sinus: normal facial exam Eyes General: appearance normal, both eyes and all related structures Neck Neck: normal visual inspection Thyroid: thyroid normal Lymphatic: no lymphadenopathy noted Chest Chest palpation inspection: normal inspection of the chest Breast inspection: normal inspection of the breasts and normal inspection of the axillae Breast palpation: normal palpation of the breasts, normal palpation of the axillae and no axillary lymphadenopathy Resp Effort Inspection: normal respiratory effort GI Inspection: normal to inspection Palpation: soft and no hepatosplenomegaly Rectal Exam: deferred General: bladder normal to palpation External Female Exam: normal external appearance and normal appearance of the urethra (atrophic) (more content not included)... Normal [facility] T4 Free Directon 11-25-2023 T4 FREE DIRECT 0.96 ng/dL Normal 0.76-1.[address] [facility] Comment on above: Performed By: #### L 509.6000, L506.1000, L506.0400, L500.4050, L501.9520, L100.0100 #### [facility] [address] [place], [address] Thyroid Stim Hormone (TSH)on 11-25-2023 TSH 1.150 uIU/mL Normal 0.358-3.740 [facility] Comment on above: Performed By: #### L 509.6000, L506.1000, L506.0400, L500.4050, L501.9520, L100.0100 #### [facility] [address] [place], [address] Vitamin D,25 Hydroxyon 11-24 Vitamin D 25-OH 31.8 ng/mL Normal [facility] Comment on above: Result Comment: Tania min D 25(OH) Status Range Deficiency <20 ng/mL (50nmol/L) Insufficiency 20 - 30 ng/mL (50 - 75 nmol/L) Sufficiency 30 - 100 ng/mL (75 - 250 nmol/L) Toxicity >100 ng/mL (>250 nmol/L) Performed By: #### L 509.6000, L506.1000, L506.0400, L500.4050, L501.9520, L100.0100 #### [facility] [address] [place], [address] CALCIFEDIOL ([id number])Ordered B y: Key Account Manager on 05-16-2022 25-hydroxyvitamin D [Mass/Vol] 34.1 ng/mL Normal 30.0-100.0 [facility]; [facility] Work Phone: Comment on above: Vitamin D deficiency has been defined by the [place] [facility] and an Endocrine Society practice guideline as alevel of serum 25-OH vitamin D less than 20 ng/mL (1,2).The Endocrine Society went on to further define vitamin Dinsufficiency as a level between 21 and 29 ng/mL (2).1. IOM ([place] of Medicine). 2010. Dietary reference intakes for calcium and D. [place]: The National Academies Press.2. Dagoberto MF, Joe NC, Rohit LEON, et al. Evaluation, treatment, and prevention of vitamin D deficiency: an Endocrine Society clinical practice guideline. JCEM. 2010; 96(7):1911-30. PATIENT WAS FASTINGP ERFORMED BY: [employer] [place] [id number] CBC with auto diff ([id number])Or dered By: Key Account Manager on 05-16-2022 Basophils (Bld) [#/Vol] 0.0 10*3/uL Normal 0.0-0.2 [facility]; [facility] Work Phone: Comment on above: PATIENT WAS FASTINGP ERFORMED BY: [employer]6370 [facility]CareAt[facility] [id number] Basophils/100 WBC (Bld) 1 % Normal [facility]; [facility] Work Phone: Comment on above: PATIENT WAS FASTINGP ERFORMED BY: [employer] Xofaeh[address]Dublin [place] [id number] Eosinophils (Bld) [#/Vol] 0.1 10*3/uL Normal 0.0-0.4 [facility]; [facility] Work Phone: Comment on above: PATIENT WAS FASTINGP ERFORMED BY: [facility] Qltpam7319 [address] Roadblin [place] [id number] Eosinophils/100 WBC (Bld) 3 % Normal [facility]; [facility] Work Phone: Comment on above: PATIENT WAS FASTINGP ERFORMED BY: [facility] RoadAtrium Health [facility] Centerin [place] [id number] Erythrocyte distribution width (RBC) [Ratio] 11.6 % Abnormal 11.7-15.4 [facility]; [facility] Work Phone: Comment on above: PATIENT WAS FASTINGP ERFORMED BY: [facility] [facility] [id number] Hematocrit (Bld) [Volume fraction] 37.2 % Normal 34.0-46.6 [facility]; [facility] Work Phone: Comment on above: PATIENT WAS FASTINGP ERFORMED BY: [facility] [facility]in [place] [id number] Hemoglobin (Bld) [Mass/Vol] 12.8 g/dL Normal 11.1-15.9 [facility]; [facility] Work Phone: Comment on above: PATIENT WAS FASTINGP ERFORMED BY: [facility] RoadAtrium Health [facility] Centerin [place] [id number] Immature granulocytes (Bld) [#/Vol] 0.0 10*3/uL Normal 0.0-0.1 [facility]; [facility] Work Phone: Comment on above: PATIENT WAS FASTINGP ERFORMED BY: [facility] Touwyc[address]Dublin [place] [id number] Immature granulocytes/100 WBC (Bld) 0 % Normal [facility]; [facility] Work Phone: Comment on above: PATIENT WAS FASTINGP ERFORMED BY: CB [facility] Jtkvch55[address] RoadDublin [place] [id number] Lymphocytes (Bld) [#/Vol] 1.3 10*3/uL Normal 0.7-3.1 [facility]; [facility] Work Phone: Comment on above: PATIENT WAS FASTINGP ERFORMED BY: [facility] Fambck[address] RoadDublin [place] [id number] Lymphocytes/100 WBC (Bld) 29 % Normal [facility]; [facility] Work Phone: Comment on above: PATIENT WAS FASTINGP ERFORMED BY: [facility] Sqwamb8[address] RoadDublin [place] [id number] MCH (RBC) [Entitic mass] 31.4 pg Normal 26.6-33.0 [facility]; [facility] Work Phone: Comment on above: PATIENT WAS FASTINGP ERFORMED BY: [facility] Grxlbj1895 [address] RoadDublin [place] [id number] MCHC (RBC) [Mass/Vol] 34.4 g/dL Normal 31.5-35.7 [facility]; [facility] Work Phone: Comment on above: PATIENT WAS FASTINGP ERFORMED BY: [facility] Giduro[address]Dublin [place] [id number] MCV (RBC) [Entitic vol] 91 fL Normal 79-97 [facility]; [facility] Work Phone: Comment on above: PATIENT WAS FASTINGP ERFORMED BY: [facility] Aecxjh56[address] RoadDublin [place] [id number] Monocytes (Bld) [#/Vol] 0.4 10*3/uL Normal 0.1-0.9 [facility]; [facility] Work Phone: Comment on above: PATIENT WAS FASTINGP ERFORMED BY: [facility] Nitecn[address]Dublin [place] [id number] Monocytes/100 WBC (Bld) 10 % Normal [facility]; [facility] Work Phone: Comment on above: PATIENT WAS FASTINGP ERFORMED BY: VITOR [facility] Fugmte77[address] RoadDublin [place] [id number] Neutrophils (Bld) [#/Vol] 2.6 10*3/uL Normal 1.4-7.0 [facility]; [facility] Work Phone: Comment on above: PATIENT WAS FASTINGP ERFORMED BY: CB [facility] Oxdqjf0119 [address]Dublin [place] [id number] Neutrophils/100 WBC (Bld) 57 % Normal [facility]; [facility] Work Phone: Comment on above: PATIENT WAS FASTINGP ERFORMED BY: CB [facility] Fdqbkv74[address]Dublin [place] [id number] Platelets (Bld) [#/Vol] 215 10*3/uL Normal 150-450 [facility]; [facility] Work Phone: Comment on above: PATIENT WAS FASTINGP ERFORMED BY: CB [facility] Tmirca86[address] RoadDublin [place] [id number] RBC (Bld) [#/Vol] 4.08 10*6/uL Normal 3.77-5.28 Compr ehensive [facility]; [facility] Work Phone: Comment on above: PATIENT WAS FASTINGP ERFORMED BY: VITOR [facility] Erudjf8326 [address]Dublin [place] [id number] WBC (Bld) [#/Vol] 4.5 10*3/uL Normal 3.4-10.8 Compre [facility]; [facility] Work Phone: Comment on above: PATIENT WAS FASTINGP ERFORMED BY: CB [facility] Hjvsck[address] RoadDublin [place] [id number] LIPID PANEL ([id number])Ordered B y: Key Account Manager on 05-16-2022 Cholesterol [Mass/Vol] 183 mg/dL Normal 100-199 [facility]; [facility] Work Phone: Comment on above: PATIENT WAS FASTINGP ERFORMED BY: CB [facility] Apqjgy5[address] RoadDublin [place] [id number] Cholesterol in HDL [Mass/Vol] 77 mg/dL Normal [facility]; [facility] Work Phone: Comment on above: PATIENT WAS FASTINGP ERFORMED BY: VITOR Labcoblair GriderAnkwqg[address] [facility] [id number] Triglyceride [Mass/Vol] 37 mg/dL Normal 0-149 [facility]; [facility] Work Phone: Comment on above: PATIENT WAS FASTINGP ERFORMED BY: VITOR [facility] Utvxfb2688 [facility] [id number] LIPID PANEL ([id number]) 8 mg/dL Normal 5-40 [facility]; [facility] Work Phone: Comment on above: PATIENT WAS FASTINGP ERFORMED BY: VITOR [facility] Vvhdfn4269 [facility] [id number] LIPID PANEL ([id number]) 98 mg/dL Normal 0-99 [facility]; [facility] Work Phone: Comment on above: PATIENT WAS FASTINGP ERFORMED BY: VITOR Labdo[facility] Gjrchh2895 [facility] [id number] LIPID PANEL (55243) 1.3 {ratio} Normal 0.0-3.2 [facility]; [facility] Work Phone: Comment on above: LDL/HDL Ratio Men Wo men 1/2 Avg.Risk 1.0 1.5 Avg.Risk 3.6 3.2 2X Avg.Risk 6.2 5.0 3X Avg.Risk 8.0 6.1 PATIENT WAS FASTINGP ERFORMED BY: VITOR [facility] Jusiee1269 [facility] [id number] METABOLIC PANEL, COMPREHENSI VE ([id number])Ordered By: Key Account Manager on 05-16-2022 Albumin [Mass/Vol] 4.4 g/dL Normal 3.8-4.8 [facility]; [facility] Work Phone: Comment on above: PATIENT WAS FASTINGP ERFORMED BY: VITOR [facility] Lclgii[address] [facility] [id number] Albumin/Globulin [Mass ratio] 2.1 {ratio} Normal 1.2-2.2 [facility]; [facility] Work Phone: Comment on above: PATIENT WAS FASTINGP ERFORMED BY: CB [facility] Zqtpep8319 [address] RoadDublin [place] [id number] ALP [Catalytic activity/Vol] 70 U/L Normal 44-121 [facility]; [facility] Work Phone: Comment on above: PATIENT WAS FASTINGP ERFORMED BY: CB [facility] Pdqlsq8935 [address] RoadDublin [place] [id number] ALT [Catalytic activity/Vol] 18 U/L Normal 0-32 [facility]; [facility] Work Phone: Comment on above: PATIENT WAS FASTINGP ERFORMED BY: CB [facility] Iaxdoo94[address] RoadDublin [place] [id number] AST [Catalytic activity/Vol] 19 U/L Normal 0-40 [facility]; [facility] Work Phone: Comment on above: PATIENT WAS FASTINGP ERFORMED BY: CB [facility] Gxoggq4821 [address] RoadDublin [place] [id number] Bilirubin [Mass/Vol] 0.4 mg/dL Normal 0.0-1.2 [facility]; [facility] Work Phone: Comment on above: PATIENT WAS FASTINGP ERFORMED BY: CB [facility] Kcluem9588 [address] RoadDublin [place] [id number] Calcium [Mass/Vol] 9.1 mg/dL Normal 8.7-10.2 [facility]; [facility] Work Phone: Comment on above: PATIENT WAS FASTINGP ERFORMED BY: CB [facility] Aqwvzx3536 [address] RoadDublin [place] [id number] Chloride [Moles/Vol] 105 mmol/L Normal 96-106 [facility]; [facility] Work Phone: Comment on above: PATIENT WAS FASTINGP ERFORMED BY: CB [facility] Pxvqgu5806 [address]Dublin [place] [id number] CO2 [Moles/Vol] 24 mmol/L Normal 20-29 Comprehen sive [facility]; [facility] Work Phone: Comment on above: PATIENT WAS FASTINGP ERFORMED BY: VITOR Sebastianleonie GriderPfbrvd8793 [facility] [id number] Creatinine [Mass/Vol] 0.77 mg/dL Normal 0.57-1.00 [facility]; [facility] Work Phone: Comment on above: PATIENT WAS FASTINGP ERFORMED BY: VITOR Griderlin6370 [facility] [id number] GFR/1.73 sq M.predicted among non-blacks MDRD (S/P/Bld) [Vol rate/Area] 96 mL/min/{1.73_m2} Normal Comprehensiv e [facility]; [facility] Work Phone: Comment on above: PATIENT WAS FASTINGP ERFORMED BY: VITOR Griderlin6370 [facility] [id number] Globulin (S) [Mass/Vol] 2.1 g/dL Normal 1.5-4.5 [facility]; [facility] Work Phone: Comment on above: PATIENT WAS FASTINGP ERFORMED BY: VITOR Griderlin6370 [facility] [id number] Glucose [Mass/Vol] 85 mg/dL Normal 70-99 [facility]; [facility] Work Phone: Comment on above: PATIENT WAS FASTINGP ERFORMED BY: VITOR Griderlin6370 [facility] [id number] Potassium [Moles/Vol] 4.3 mmol/L Normal 3.5-5.2 [facility]; [facility] Work Phone: Comment on above: PATIENT WAS FASTINGP ERFORMED BY: VITOR Griderlin6370 [facility] [id number] Protein [Mass/Vol] 6.5 g/dL Normal 6.0-8.5 [facility]; [facility] Work Phone: Comment on above: PATIENT WAS FASTINGP ERFORMED BY: [facility]6370 [facility] [id number] Sodium [Moles/Vol] 141 mmol/L Normal 134-144 [facility]; [facility] Work Phone: Comment on above: PATIENT WAS FASTINGP ERFORMED BY: [facility]6370 [facility] [id number] Urea nitrogen [Mass/Vol] 13 mg/dL Normal 6-24 [facility]; [facility] Work Phone: Comment on above: PATIENT WAS FASTINGP ERFORMED BY: [facility]6370 [facility] [id number] Urea nitrogen/Creatini ne [Mass ratio] 17 mg/mg Normal 9-23 [facility]; [facility] Work Phone: Comment on above: PATIENT WAS FASTINGP ERFORMED BY: [facility]6370 [facility] [id number] TSH (THYROID STIMULATING HOR BALTAZAR) ([id number])Ordered By: Key Account Manager on 05-16-2022 TSH Qn 1.520 {uIU/mL} Normal 0.450-4.500 [facility]; [facility] Work Phone: Comment on above: PATIENT WAS FASTINGP ERFORMED BY: [facility]6370 [facility] [id number] Absolute lymphocyte counton 07-30-2021 Lymphocytes Auto (Unsp spec) [#/Vol] 1.14 10*3/uL 0.83-4.51 [facility] Work Phone: Basophil percentageon 2021 Basophils/100 WBC (Bld) 1.4 % 0-1 [facility] Work Phone: Bilirubin [Mass/Vol] 0.50 mg/dL 0.20-1.00 [facility] Work Phone: Comment on above: For patients on eltr ombopag therapy, use of Dimension [place] TBIL is not recommended. Chloride [Moles/Vol] 110 mmol/L 98-107 [facility] Work Phone: Eosinophils/100 WBC (Bld) 2.4 % 0-5 [facility] Work Phone: Glucose [Mass/Vol] 94 mg/dL 74-106 [facility] Work Phone: Neutrophils (Bld) [#/Vol] 2.5 10*3/uL 2.0-7.7 [facility] Work Phone: Neutrophils/100 WBC (Bld) 59.9 % 47-70 [facility] Work Phone: Potassium [Moles/Vol] 4.2 mmol/L 3.5-5.1 [facility] Work Phone: Protein [Mass/Vol] 7.1 g/dL 6.4-8.2 [facility] Work Phone: Sodium [Moles/Vol] 141 mmol/L 136-145 [facility] Work Phone: WBC (Bld) [#/Vol] 4.2 10*3/uL 4.4-11.0 [facility] Work Phone: Blood erythrocytes count (nu mber/volume)on 07-30-2021 RBC (Bld) [#/Vol] 4.22 10*6/uL 4.2-5.4 [facility]: Blood hemoglobin measurement (mass/volume)on 07-30-2021 Hemoglobin (Bld) [Mass/Vol] 13.2 g/dL 12.0-15.0 [facility] Work Phone: Blood lymphocytes/100 leukoc yteson 07-30-2021 Lymphocytes/100 WBC (Bld) 26.9 % 19-41 [facility] Work Phone: Blood monocytes/100 leukocyt eson 07-30-2021 Monocytes/100 WBC (Bld) 9.2 % 0-10 [facility] Work Phone: Blood platelet mean volumeon 07-30-2021 Platelet mean volume (Bld) [Entitic vol] 10.5 fL 6.2-12.0 [facility] Work Phone: Determination of erythrocyte mean corpuscular volume (MCV)on 07-30-2021 MCV (RBC) [Entitic vol] 95.0 fL 81-99 [facility] Work Phone: Hematocrit Auto (Bld) [Volum e fraction]on 07-30-2021 Hematocrit (Bld) [Volume fraction] 40.1 % 37-[address] [facility] Work Phone: Laboratory - Chemistry and C hemistry - challengeon 07-30-2021 ALP [Catalytic activity/Vol] 63 U/L 45-117 [facility] Work Phone: ALT [Catalytic activity/Vol] 27 U/L 13-56 [facility] Work Phone: CO2 [Moles/Vol] 26.0 mmol/L 21.0-32.0 [facility] Work Phone: Cobalamin (Vitamin B12) [Mass/Vol] 472 pg/mL 211-911 [facility] Work Phone: Globulin (S) [Mass/Vol] 3.2 g/dL 2.2-4.2 [facility] Work Phone: Urea nitrogen/Creatini ne [Mass ratio] 12.9 mg/mg 10-20 [facility] Work Phone: Laboratory - Hematology and Cell countson 07-30-2021 Erythrocyte distribution width (RBC) [Entitic vol] 41.9 fL 35.1-43.9 [facility] Work Phone: Erythrocyte distribution width (RBC) [Ratio] 12.1 % 11.6-14.6 [facility] Work Phone: Immature granulocytes/100 WBC (Bld) 0.200 % 0.0-0.9 [facility] Work Phone: Comment on above: IG% - Immature Granu locytes (promyelocytes, myelocytes and metamyelocytes) > 1% indicates that a LEFT SHIFT is Present. MCH (RBC) [Entitic mass] 31.3 pg 27.0-32.0 [facility] Work Phone: Nucleated RBC/100 WBC (Bld) [Ratio] 0 % 0-[address] [facility] Work Phone: MCHC Auto (RBC) [Mass/Vol]on 07-30-2021 MCHC (RBC) [Mass/Vol] 32.9 g/dL 32-36 [facility] Work Phone: No Panel Informationon 07-30 Estimated GFR (MDRD) Amer 103 mL/min >60 [facility] Work Phone: Comment on above: GFR Calc Estimated GFR (MDRD) Non-Af Amer 85 mL/min >60 [facility] Work Phone: Comment on above: Non- GFR Calc Thyroid Stimulating Hormone (TSH) 0.88 uIU/mL 0.358-3.74 [facility] Work Phone: Vitamin D 25-Hydroxy 25.9 ng/mL [facility] Work Phone: Comment on above: Vitamin D 25(OH) Sta tus Range Deficiency <20 ng/mL (50nmol/L) Insufficiency 20 - 30 ng/mL (50 - 75 nmol/L) Sufficiency 30 - 100 ng/mL (75 - 250 nmol/L) Toxicity >100 ng/mL (>250 nmol/L) Platelets bldon 07-30-2021 Platelets (Bld) [#/Vol] 246 10*3/uL 150-450 [facility] Work Phone: Serum or plasma albumin ld urement (mass/volume)on 07-30-2021 Albumin [Mass/Vol] 3.9 g/dL 3.2-5.0 [facility] Work Phone: Serum or plasma albumin/glob ulin mass ratioon 07-30-2021 Albumin/Globulin [Mass ratio] 1.2 {ratio} 0.9-2.4 [facility] Work Phone: Serum or plasma calcium ld urement (mass/volume)on 07-30-2021 Calcium [Mass/Vol] 8.9 mg/dL 8.5-10.1 [facility] Work Phone: Serum or plasma creatinine m easurement (mass/volume)on 07-30-2021 Creatinine [Mass/Vol] 0.77 mg/dL 0.55-1.02 [facility] Work Phone: Comment on above: The validity of the calculated GFR & GFRAA in patients over 70 years has not been determined. Clinical correlation is essential. Serum or plasma urea nitroge n measurement (mass/volume)on 07-30-2021 Urea nitrogen [Mass/Vol] 10 mg/dL 7-18 [facility] Work Phone: Thin prep Papanicolaou smear with manual screeningon 07-30-2021 Thin prep Papanicolaou smear with manual screening 18 U/L 15-37 [facility] Work Phone: Thin prep Papanicolaou smear with manual screening 5 5-15 [facility] Work Phone: CNPLulu 11-08-2020 [facility] Telephone ([employer]) TERE BANSAL ([id number]) 1975 F Date Time Provider Department 11/08/20 [facility] During your visit today, we recorded the following information about you: Caroline Lerner RN 11/08/2020 8:14 AM Signed Patient calling with c/o urinary frequency for the last week and a half. No dysuria. Urine is dark in color. Patient willing to go to the lab today to provide a urine sample. UA and Urine Culture orders pending if appropriate. Caroline Ingram MD 11/08/2020 8:22 AM Signed Will treat, if not resolved or recurs let us know. Thanks. MD Eli Bullard RN 11/08/2020 8:32 AM Signed Patient notified that the following approved medications have been transmitted electronically. Voiced understanding of instructions below. Signed Prescriptions Disp Refills cephALEXin (KEFLEX) 500 mg capsule 12 capsule 0 Sig: Take 1 capsule by mouth four times daily for 3 days. TAKE ONE(1) TABLET FOUR (4) TIMES DAILY FOR (7) DAYS. Authorizing Provider: EMILY INGRAM Pharmacy Information Pharmacy Address Telephone [facility] [facility] [address] [place] [address] Eli Lowry RN Allergies As of Date: 11/08/2020 Noted Allergy Reaction LATEX 11/07/2004 2 - Rash Comments: WHEN SHE WEARS LATEX GLOVES Date Reviewed: 09/21/2020 Reviewed by: Elisabeth Bowen Ma - Fully Assessed Reason for Visit: Urinary Frequency [1086] Primary Visit Diagnosis:Urine frequency [R35.0] Order(s):cephALEXin (KEFLEX) 500 mg capsuleTake 1 capsule by mouth four times daily for 3 days. TAKE ONE(1) TABLET FOUR (4) TIMES DAILY FOR (7) DAYS.Disp: 12 capsuleRfl: 0 Prescriptions as of 11/08/2020 - cephALEXin (KEFLEX) 500 mg capsule Take 1 capsule by mouth four times daily for 3 days. TAKE ONE(1) TABLET FOUR (4) TIMES DAILY FOR (7) DAYS. - multivit,calc,mins/iron /folic (ONE-A-DAY WOMENS FORMULA ORAL) Take by mouth. - triamcinolone acetonide (KENALOG) 0.1 % cream Apply 1 application to affected area three times daily. Apply sparingly to area for rash/itching. - Calcium Carb-Cholecalciferol (CALCIUM 600 + D(3)) 600-200 mg-unit ORAL Tab Problem List As Of Date 11/08/2020 Noted Resolved SUPERVIS OTHER NORMAL PREG [Z34.80] 08/30/2006 07/21/2007 ADJUSTMENT DISORDER WITH DEPRESSED MOOD [F43.21]06/25/2007 Depression with Anxiety [F41.8] 07/14/2009 Prescriptions ordered this encounter Disp Refills Start End CEPHALEXIN 500 MG CAPSULE 12 c* 0 11/08/2020 11/11/2020 Route: ORAL Sig: Take 1 capsule by mouth four times daily for 3 days. TAKE ONE(1) TABLET FOUR (4) TIMES DAILY FOR (7) DAYS. Encounter Status:Closed by ELI LOWRY RN on 11/08/20 [facility] CNOVon 09-21-2020 CNOV Office Visit (OBGYWM ) TERE BANSAL ([id number]) 1975 F Date Time Provider Department 09/21/20 8:40 AM EMILY INGRAM [facility] During your visit today, we recorded the following information about you: Blood pressure Weight Height Last Period 114/68 77.6 kg 1.753 m 09/18/20 Emily Ingram MD 09/21/2020 9:04 AM Signed Tere is a 44 year old who presents for an annual gynecologic exam without complaints. Menses: cycles every 30 days and 4-5 days of flow. Contraception: vasectomy HPV vaccine: No Last Pap: 09/27/2019 normal HPV: 09/23/2019 negative History of abnormal pap: yes, leep 1976 Last mammogram: 2019 Sexually active: Yes OB History T2 L3 SAB2 TAB0 Ectopic0 Multiple0 Live Births3 PAST MEDICAL HISTORY Diagnosis Date - Abnormal glandular Papanicolaou smear of cervix Abn. Pap smear (cervix) - Congenital musculoskeletal deformity of spine SCOLIOSIS - Unspecified , without mention of complication, unspecified x-2 (Miscarriages) PAST SURGICAL HISTORY Procedure Laterality Date - CERVIX UTERI CONIZA LP ELCTRO EXCI 1996 LEEP-Cervix/ HPV VIRUS - COLPOSCOPY (VAGINOSCOPY) Colposcopy - DANDC, DIAG AND/OR THERAPEUTIC 08/23 Dilation AND curettage - PAST SURGICAL HISTORY OF 1986 BILATERAL FOOT SURGERY FAMILY HISTORY Problem Relation Age of Onset - Coronary Artery Disease Father - Hypertension Father - Psychiatry Father Depression - Cancer Father Lung - Hypertension Maternal Grandmother - other (Dementia) Maternal Grandmother - Coronary Artery Disease Maternal Grandfather - Cancer Paternal Grandmother lung-smoker - Hypertension Paternal Grandmother SOCIAL HISTORY Social History Tobacco Use - Smoking status: Current Every Day Smoker Years: 7.00 Last attempt to quit: 06/10/2006 Years since quittin.2 - Smokeless tobacco: Never Used - Tobacco comment: couple daily Vaping Use - Vaping Use: Never used Substance Use Topics - Alcohol use: Yes Comment: 7-8 beers/sitting, quit altogether 08/19/2009. - Drug use: No REVIEW OF SYSTEMS Abdomen: No abdominal pain, nausea, vomiting, diarrhea, or constipation. No bloating, early satiety, indigestion, or increased flatulence. Bladder: No dysuria, gross hematuria, urinary frequency, urinary urgency, or incontinence. Breast: No breast lumps, nipple d/c, overlying skin changes, redness or skin retraction. Allergies and current medication updated:Yes EXAM: BP 114/68 Ht 5' 9 (1.75m) Wt 171 lb (77.6kg) LMP 09/18/2020 BMI 25.24 kg/(m2). GENERAL: pleasant, female in no apparent distress HEENT: Normocephalic, atraumatic, mucus membranes moist and no lesions NECK: Supple, full range of motion, no adenopathy and thyroid normal DERMATOLOGY: Normal, without lesions, non-icteric and non-hirsute BREAST: soft, non-tender, symmetric, no dominant mass, normal nipple-areolar complex, no lymphadenopathy and no nipple discharge CHEST: Normal inspiratory effort ABDOMEN: soft, non-tender and no masses PELVIC: external genitalia normal, normal Bartholin's glands, urethra, [place]'s glands, no vulvar lesions, no cervical lesions, good vaginal support, physiologic discharge present, normal appearing perineal body and perianal region BIMANUAL: uterus normal size, shape and consistency, no adnexal masses and non-tender RECTOVAGINAL: deferred. NEURO: alert and oriented x3,exam grossly non-focal EXTREMITIES: normal ASSESSMENT/PLAN: 1) Health maintenance: Pap/HPV up to date. Mammogram ordered. 2) Contraception: vasectomy. Contraceptive options reviewed and information provided. 3) STD screening: Declined STD check. 4) Follow up one year or sooner as needed Emily Ingram MD Referring Provider: SELF [200] Allergies As of Date: 09/21/2020 Noted Allergy Reaction LATEX 11/07/2004 2 - Rash Comments: WHEN SHE WEARS LATEX GLOVES Date Reviewed: 09/21/2020 Reviewed by: Elisabeth Bowen Ma - Fully Assessed Reason for Visit: Yearly Exam [187] Visit Diagnoses:Encounter for gynecological examination (general) (routine) without abnormal findings [Z01.419] Encounter for screening mammogram for breast cancer [Z12.31] Order(s):IZAIAH SCREENING W GABINO [[id number]] Order #: [id number] FUTURE Prescriptions as of 09/21/2020 Sig: ONE-A-DAY WOMENS FORMULA ORAL Take by mouth. CALCIUM 600 + D(3) 600 MG (1,* TRIAMCINOLONE ACETONIDE 0.1 %* Apply 1 application to affect* Patient not taking: Reported on 09/05/2020 Problem List As Of Date 09/21/2020 Noted Resolved SUPERVIS OTHER NORMAL PREG [Z34.80] 08/30/2006 07/21/2007 ADJUSTMENT DISORDER WITH DEPRESSED MOOD [F43.21]06/25/2007 Depression with Anxiety [F41.8] 07/14/2009 Disposition: Return in 1 year (on 09/21/2021) for Annual Exam. Follow-up and Disposition History Recorded Encounter Status:Closed by FELISA (more content not included)... [facility] ELMAOVon 09-05-2020 CNOV Office Visit (UCWSTR ) TERE BANSAL ([id number]) 1975 F Date Time Provider Department 09/05/20 2:00 PM ANTONIO OLSENYA [facility] During your visit today, we recorded the following information about you: Temperature Pulse Respiration Blood pressure 97.5 degrees 59/minute 18/minute 136/84 Weight 78.4 kg Aure Olsen APRN.CNP 09/05/2020 2:53 PM Signed Subjective The history is provided by the patient. No wood science professor was used. HPI Tere Bansal is a 44 year old female who presents today for CC of left ear pain. This started over the past week and is not going away. She is also having rhinorrhea and mild nasal congestion. She is using OTC allergy pill 10 mg, not sure of name. H/o cerumen impaction BP 136/84 Pulse (!) 59 Temp 36.4 ?C (97.5 ?F) (Tympanic) Resp 18 Wt 78.4 kg (172 lb 12.8 oz) LMP 09/10/2019 (Exact Date) SpO2 98% BMI 25.52 kg/m? Social History Tobacco Use - Smoking status: Current Every Day Smoker Years: 7.00 Last attempt to quit: 06/10/2006 Years since quittin.2 - Smokeless tobacco: Never Used - Tobacco comment: couple daily Vaping Use - Vaping Use: Never used Substance Use Topics - Alcohol use: Yes Comment: 7-8 beers/sitting, quit altogether 08/19/2009. - Drug use: No PAST MEDICAL HISTORY Diagnosis Date - Abnormal glandular Papanicolaou smear of cervix Abn. Pap smear (cervix) - Congenital musculoskeletal deformity of spine SCOLIOSIS - Unspecified , without mention of complication, unspecified x-2 (Miscarriages) I have confirmed and edited as necessary, the [facility] Review of Systems Constitutional: Negative for chills and fever. HENT: Positive for ear pain (left). Negative for congestion (mild rhinorrhea), sinus pain and sore throat. Respiratory: Negative for cough, sputum production, shortness of breath and wheezing. Cardiovascular: Negative for chest pain. Musculoskeletal: Negative for myalgias. Neurological: Negative for headaches. Objective Physical Exam Vitals and nursing note reviewed. HENT: Right Ear: There is impacted cerumen. Left Ear: There is impacted cerumen. Ears: Comments: Lavage done of both ears by Francheska Rajan MA, patient tolerated well, unable to see TM - Pulmonary: Effort: Pulmonary effort is normal. Skin: General: Skin is warm and dry. Neurological: Mental Status: She is alert and oriented to person, place, and time. Psychiatric: Mood and Affect: Affect normal. ASSESSMENT/PLAN: 1. Left ear pain - ICD9: 388.70, ICD10: H92.02 (primary diagnosis) Appears to be from wax impacation Tylenol (generic acetaminophen) 500 mg-2 tabs every 8 hrs. as needed for fever and aches Ibuprofen 600 mg (3-200mg tablets) every 6 hours Zyrtec 10 mg By mouth daily at bedtime Flonase or Nasonex 2 sprays in each nostril once a day 2. Bilateral impacted cerumen - ICD9: 380.4, ICD10: H61.23 Use may use OTC Debrox or Cerumenex once a month for maintenance. Avoid inserting Q-tips into your ears. Follow up with your ENT as needed if no improvement or worsening symptoms. Diagnosis and treatment plan were discussed and questions were answered to the patient's satisfaction. Pt acknowledged understanding of concepts and follow up plan. Specific signs and symptoms that would indicate the need for higher level of care were discussed in detail warranting prompt ER evaluation. Aure Olsen APRN.BLANKA Olsen APRN.CNP 09/05/2020 2:42 PM Signed Zyrtec 10 mg By mouth daily at bedtime Flonase or Nasonex 2 sprays in each nostril once a day Tylenol (generic acetaminophen) 500 mg-2 tabs every 8 hrs. as needed for fever and aches Ibuprofen 600 mg (3-200mg tablets) every 6 hours Use may use OTC Debrox or Cerumenex once a month for maintenance. Avoid inserting Q-tips into your ears. Follow up with your PCP as needed. Referring Provider: SELF [200] Allergies As of Date: 09/05/2020 Noted Allergy Reaction LATEX 11/07/2004 2 - Rash Comments: WHEN SHE WEARS LATEX GLOVES Date Reviewed: 09/05/2020 Reviewed by: Christina Regalado LPN - Fully Assessed Reason for Visit: Ear Pain [817] Cmt: left ear pain x 1 week Primary Visit Diagnosis:Left ear pain [H92.02] Other Visit Diagnosis:Bilateral impacted cerumen [H61.23] Prescriptions as of 09/05/2020 Sig: ONE-A-DAY WOMENS FORMULA ORAL Take by mouth. CALCIUM 600 + D(3) 600 MG (1,* TRIAMCINOLONE ACETONIDE 0.1 %* Apply 1 application to affect* Patient not taking: Reported on 09/05/2020 Problem List As Of Date 09/05/2020 Noted Resolved SUPERVIS OTHER NORMAL PREG [Z34.80] 08/30/2006 07/21/2007 ADJUSTMENT DISORDER WITH DEPRESSED MOOD [F43.21]06/25/2007 Depression with Anxiety [F41.8] 07/14/2009 Other instructions from your clinician: Zyrtec 10 mg By mouth daily at bedtime Flonase or Nasonex 2 sprays in each nostril once a day Tylenol (generic acetaminophen) 500 mg-2 (more content not included)... [facility] Urinalysis, Office (12103)Or dered By: HEAVEN Ingram on 03-12-2011 Bilirubin Ql (U) Negative [facility] Work Phone: Bilirubin Ql (U) Negative [facility]; [facility] Work Phone: Glucose Test strip (U) [Mass/Vol] Negative Normal [facility]; [facility] Work Phone: Glucose Test strip mass conc (U) Negative Normal [facility] Work Phone: Hemoglobin Ql (U) Hemolyzed Trace Normal [facility] Work Phone: Ketones Ql (U) Negative Normal [facility] Work Phone: Ketones Ql (U) Negative Normal [facility]; [facility] Work Phone: Leukocyte esterase Test strip Ql (U) Trace Normal [facility] Work Phone: Nitrite Ql (U) Negative Normal [facility] Work Phone: Nitrite Ql (U) Negative Normal [facility]; [facility] Work Phone: pH (U) 6.0 [pH] Normal [facility] Work Phone: Protein Ql (U) Negative Normal [facility] Work Phone: Protein Ql (U) Negative Normal [facility]; [facility] Work Phone: Specific gravity Relative Density (U) 1.005 1 Normal [facility] Work Phone: Urobilinogen mass/time (24H U) 2 mg/dL Normal [facility] Work Phone: Vital Signs Date Time Vital Sign Value Performing Clinician Facility 11-13-2022 14:47-0400 Body height 175.[address] Becky Pereyra Work Phone: [facility] 11-13-2022 14:42-0400 Body mass index (BMI) [Ratio] 26.2 kg/m2 Dr. Becky Pereyra Work Phone: [facility] 11-13-2022 14:42-0400 Body weight 80.[address] Becky Pereyra Work Phone: [facility] 11-13-2022 14:42-0400 Diastolic blood pressure 82 mm[Hg] Dr. Becky Pereyra Work Phone: [facility] 11-13-2022 14:42-0400 Systolic blood pressure 128 mm[Hg] Dr. Becky Pereyra Work Phone: [facility] 07-24-2022 08:03-0400 Body height 175.26 cm Zulma Godinez MA [facility]; [facility] Work Phone: 07-24-2022 08:03-0400 Body mass index (BMI) [Ratio] 25.84 kg/m2 Zulma Godinez MA [facility]; [facility] Work Phone: 07-24-2022 08:03-0400 Body surface area Derived from formula 1.95 m2 Zulma Godinez MA [facility]; [facility] Work Phone: 07-24-2022 08:03-0400 Body temperature 95 [degF] Zulma Godinez MA [facility]; [facility] Work Phone: 07-24-2022 08:03-0400 Body weight 79.38 kg Zulma Godinez MA [facility]; [facility] Work Phone: 07-24-2022 08:03-0400 Diastolic blood pressure 80 mm[Hg] Zulma Godinez MA [facility]; [facility] Work Phone: Comment on above: Patient Position: Sitting; Cuff Location : Left Arm; Cuff Size: Standard 07-24-2022 08:03-0400 Heart rate 86 /min Zulma Godinez MA [facility]; [facility] Work Phone: Comment on above: Pattern: Regular 07-24-2022 08:03-0400 SaO2% (BldA) [Mass fraction] 98 % Zulma Godinez MA [facility]; [facility] Work Phone: Comment on above: Room air 07-24-2022 08:03-0400 Systolic blood pressure 110 mm[Hg] Zulma Godinez MA [facility]; [facility] Work Phone: Comment on above: Patient Position: Sitting; Cuff Location : Left Arm; Cuff Size: Standard 05-15-2022 09:27-0500 Body height 175.26 cm Alecia Stearns LPN [facility]; [facility] Work Phone: 05-15-2022 09:27-0500 Body mass index (BMI) [Ratio] 25.84 kg/m2 Alecia Francescorb YENNY [facility]; [facility] Work Phone: 05-15-2022 09:27-0500 Body surface area Derived from formula 1.95 m2 Alecia Slarb YENYN [facility]; [facility] Work Phone: 05-15-2022 09:27-0500 Body temperature 97.4 [degF] Alecia Jinny RAMON [facility]; [facility] Work Phone: Comment on above: Method: Temporal 05-15-2022 09:27-0500 Body weight 79.38 kg Alecia Slarb STEAM HAND [facility]; [facility] Work Phone: 05-15-2022 09:27-0500 Diastolic blood pressure 68 mm[Hg] Alecia Slarb [employer] [facility]; [facility] Work Phone: Comment on above: Patient Position: Sitting; Cuff Location : Left Arm; Cuff Size: Standard 05-15-2022 09:27-0500 Heart rate 66 /min Alecia Slarb [employer] [facility]; [facility] Work Phone: Comment on above: Pattern: Regular 05-15-2022 09:27-0500 Respiratory rate 15 /min Alecia Slarb [employer] [facility]; [facility] Work Phone: Comment on above: Pattern: Unlabored 05-15-2022 09:27-0500 SaO2% (BldA) [Mass fraction] 99 % Alecia Slarb [employer] [facility]; [facility] Work Phone: Comment on above: Room air 05-15-2022 09:27-0500 Systolic blood pressure 112 mm[Hg] Alecia Slarb [employer] [facility]; [facility] Work Phone: Comment on above: Patient Position: Sitting; Cuff Location : Left Arm; Cuff Size: Standard 10-02-2021 14:35-0400 Body height 176.53 cm No Primary Care Physician [facility] Work Phone: 10-02-2021 14:35-0400 Body mass index (BMI) [Ratio] 24.3 kg/m2 No Primary Care Physician [facility] Work Phone: 10-02-2021 14:35-0400 Body weight 75.8 kg No Primary Care Physician [facility] Work Phone: 10-02-2021 14:35-0400 Diastolic blood pressure 60 mm[Hg] No Primary Care Physician [facility] Work Phone: 10-02-2021 14:35-0400 Systolic blood pressure 110 mm[Hg] No Primary Care Physician [facility] Work Phone: 07-30-2021 10:03-0400 Body mass index (BMI) [Ratio] 24.9 kg/m2 No Primary Care Physician [facility] Work Phone: 07-30-2021 10:03-0400 Body temperature 97.3 [degF] No Primary Care Physician [facility] Work Phone: 07-30-2021 10:03-0400 Body weight 77.56 kg No Primary Care Physician [facility] Work Phone: 07-30-2021 10:03-0400 Diastolic blood pressure 74 mm[Hg] No Primary Care Physician [facility] Work Phone: 07-30-2021 10:03-0400 Heart rate 70 /min No Primary Care Physician [facility] Work Phone: 07-30-2021 10:03-0400 Respiratory rate 18 /min No Primary Care Physician [facility] Work Phone: 07-30-2021 10:03-0400 SaO2% (BldA) [Mass fraction] 97 % No Primary Care Physician [facility] Work Phone: 07-30-2021 10:03-0400 Systolic blood pressure 116 mm[Hg] No Primary Care Physician [facility] Work Phone: 07-30-2021 10:03-0400 Body height 176.53 cm No Primary Care Physician [facility] Work Phone: 07-30-2021 10:03-0400 Body mass index (BMI) [Ratio] 24.9 kg/m2 No Primary Care Physician [facility] Work Phone: 07-30-2021 10:03-0400 Body temperature 97.3 [degF] No Primary Care Physician [facility] Work Phone: 07-30-2021 10:03-0400 Body weight 77.56 kg No Primary Care Physician [facility] Work Phone: 07-30-2021 10:03-0400 Diastolic blood pressure 74 mm[Hg] No Primary Care Physician [facility] Work Phone: 07-30-2021 10:03-0400 Heart rate 70 /min No Primary Care Physician [facility] Work Phone: 07-30-2021 10:03-0400 Respiratory rate 18 /min No Primary Care Physician [facility] Work Phone: 07-30-2021 10:03-0400 SaO2% (BldA) [Mass fraction] 97 % No Primary Care Physician [facility] Work Phone: 07-30-2021 10:03-0400 Systolic blood pressure 116 mm[Hg] No Primary Care Physician [facility] Work Phone: 09-16-2018 10:12-0400 BMI (Body Mass Index) 23.04 kg/m2 Neisha Bucio [facility] Work Phone: 09-16-2018 10:12-0400 Body Temperature 97.2 [degF] Neisha Bucio [facility] Work Phone: Comment on above: Method: Temporal 09-16-2018 10:120400 Body weight 70.76 kg Neisha Bucio [facility] Work Phone: 09-16-2018 10:12-0400 BP Diastolic 78 mm[Hg] Neisha Bucio [facility] Work Phone: Comment on above: Patient Position: Sitting; Cuff Location : Left Arm; Cuff Size: Standard 09-16-2018 10:12-0400 BP Systolic 105 mm[Hg] Neisha Bucio [facility] Work Phone: Comment on above: Patient Position: Sitting; Cuff Location : Left Arm; Cuff Size: Standard 09-16-2018 10:12-0400 BSA (Body Surface Area) 1.86 m2 Neisha Bucio [facility] Work Phone: 09-16-2018 10:12-0400 Height 175.26 cm Neisha Bucio [facility] Work Phone: 09-16-2018 10:12-0400 Pulse (Heart Rate) 63 /min Neisha Bucio CMA [facility] Work Phone: Comment on above: Pattern: Regular 09-16-2018 10:12-0400 Pulse Oximetry 99 % Claudia Sin [facility] Work Phone: Comment on above: Room air 09-16-2018 10:12-0400 Respiratory Rate 18 /min Neisha Bucio CMA [facility] Work Phone: Comment on above: Pattern: Unlabored 09-16-2018 10:12-0400 SaO2% (BldA) [Mass fraction] 99 % Neisha Bucio [employer] [facility]; [facility] Work Phone: Comment on above: Room air 09-16-2018 10:12-0400 Weight 70.76 kg Claudia Sin [facility] Work Phone: 09-02-2018 09:28-0400 BMI (Body Mass Index) 23.04 kg/m2 Neisha Bucio [employer] [facility] Work Phone: 09-02-2018 09:28-0400 Body Temperature 97.7 [degF] Neisha Bucio CMA [facility] Work Phone: Comment on above: Method: Temporal 09-02-2018 09:28-0400 Body weight 70.76 kg Neisha Bucio [employer] [facility] Work Phone: 09-02-2018 09:28-0400 BP Diastolic 78 mm[Hg] Neisha Bucio [facility] Work Phone: Comment on above: Patient Position: Sitting; Cuff Location : Left Arm; Cuff Size: Standard 09-02-2018 09:28-0400 BP Systolic 109 mm[Hg] Neisha Bucio [employer] [facility] Work Phone: Comment on above: Patient Position: Sitting; Cuff Location : Left Arm; Cuff Size: Standard 09-02-2018 09:28-0400 BSA (Body Surface Area) 1.86 m2 Neisha Bucio [facility] Work Phone: 09-02-2018 09:28-0400 Height 175.26 cm Neisha Bucio THANG [facility] Work Phone: 09-02-2018 09:28-0400 Pulse (Heart Rate) 69 /min Neisha Bucio CMA [facility] Work Phone: Comment on above: Pattern: Regular 09-02-2018 09:28-0400 Pulse Oximetry 97 % Claudia Sin [facility] Work Phone: Comment on above: Room air 09-02-2018 09:28-0400 Respiratory Rate 18 /min Neisha Bucio CMA [facility] Work Phone: Comment on above: Pattern: Unlabored 09-02-2018 09:28-0400 SaO2% (BldA) [Mass fraction] 97 % Neisha Bucio THANG [facility]; [facility] Work Phone: Comment on above: Room air 09-02-2018 09:28-0400 Weight 70.76 kg Claudia Petersonon [facility] Work Phone: 03-14-2011 11:00-0500 BMI (Body Mass Index) 22 kg/m2 Marilyn Aguilera RN [facility] Work Phone: 03-14-2011 11:00-0500 Body Temperature 98.3 [degF] Marilyn Aguilera RN [facility] Work Phone: Comment on above: Method: Oral 03-14-2011 11:00-0500 Body weight 67.59 kg Marilyn Aguilera RN [facility] Work Phone: 03-14-2011 11:00-0500 BP Diastolic 72 mm[Hg] Marilyn Aguilera RN [facility] Work Phone: Comment on above: Patient Position: Sitting; Cuff Location : Left Arm; Cuff Size: Large 03-14-2011 11:00-0500 BP Systolic 112 mm[Hg] Marilyn Aguilera RN [facility] Work Phone: Comment on above: Patient Position: Sitting; Cuff Location : Left Arm; Cuff Size: Large 03-14-2011 11:00-0500 BSA (Body Surface Area) 1.82 m2 Marilyn Aguilera RN [facility] Work Phone: 03-14-2011 11:00-0500 Height 175.26 cm Marilyn Aguilera RN [facility] Work Phone: 03-14-2011 11:00-0500 Pulse (Heart Rate) 68 /min Marilyn Aguilera RN [facility] Work Phone: Comment on above: Pattern: Regular 03-14-2011 11:00-0500 Respiratory Rate 20 /min Marilyn Aguilera RN [facility] Work Phone: Comment on above: Pattern: Unlabored 03-14-2011 11:00-0500 Weight 67.59 kg Claudia Sin [facility] Work Phone: 03-12-2011 11:26-0500 BMI (Body Mass Index) 22.74 kg/m2 HEAVEN Ingram LPN [facility] Work Phone: 03-12-2011 11:26-0500 Body Temperature 98 [degF] HEAVEN Ingram LPN [facility] Work Phone: Comment on above: Method: Oral 03-12-2011 11:26-0500 Body weight 69.85 kg HEAVEN Ingram LPN [facility] Work Phone: 03-12-2011 11:26-0500 BP Diastolic 70 mm[Hg] HEAVEN Ingram LPN [facility] Work Phone: Comment on above: Patient Position: Sitting; Cuff Location : Left Arm; Cuff Size: Standard 03-12-2011 11:26-0500 BP Systolic 110 mm[Hg] HEAVEN Ingram LPN [facility] Work Phone: Comment on above: Patient Position: Sitting; Cuff Location : Left Arm; Cuff Size: Standard 03-12-2011 11:26-0500 BSA (Body Surface Area) 1.85 m2 HEAVEN Ingram LPN [facility] Work Phone: 03-12-2011 11:26-0500 Height 175.26 cm HEAVEN Ingram LPN [facility] Work Phone: 03-12-2011 11:26-0500 Pulse (Heart Rate) 70 /min HEAVEN Ingram YENNY [facility] Work Phone: Comment on above: Pattern: Regular 03-12-2011 11:26-0500 Respiratory Rate 18 /min HEAVEN Ingram YENNY [facility] Work Phone: Comment on above: Pattern: Unlabored 03-12-2011 11:26-0500 Weight 69.85 kg Claudia Sin [facility] Work Phone: 06-13-2010 09:26-0400 BMI (Body Mass Index) 21.9 kg/m2 Sinai Ward RN [facility] Work Phone: 06-13-2010 09:26-0400 Body Temperature 98.2 [degF] Sinai Ward RN [facility] Work Phone: Comment on above: Method: Oral 06-13-2010 09:26-0400 Body weight 67.27 kg Sinai Ward RN [facility] Work Phone: 06-13-2010 09:26-0400 BP Diastolic 62 mm[Hg] Sinai Ward RN [facility] Work Phone: Comment on above: Patient Position: Sitting; Cuff Location : Left Arm; Cuff Size: Standard 06-13-2010 09:26-0400 BP Systolic 116 mm[Hg] Sinai Ward RN [facility] Work Phone: Comment on above: Patient Position: Sitting; Cuff Location : Left Arm; Cuff Size: Standard 06-13-2010 09:26-0400 BSA (Body Surface Area) 1.82 m2 Sinai Ward RN [facility] Work Phone: 06-13-2010 09:26-0400 Height 175.26 cm Sinai Ward RN [facility] Work Phone: 06-13-2010 09:26-0400 Pulse (Heart Rate) 68 /min Sinai Ward RN [facility] Work Phone: Comment on above: Pattern: Regular 06-13-2010 09:26-0400 Respiratory Rate 18 /min Sinai Ward RN [facility] Work Phone: Comment on above: Pattern: Unlabored 06-13-2010 09:26-0400 Weight 67.27 kg Claudia Sin [facility] Work Phone: 05-17-2010 13:12-0500 BMI (Body Mass Index) 22.78 kg/m2 Sinai Ward RN [facility] Work Phone: 05-17-2010 13:12-0500 Body weight 69.97 kg Sinai Ward RN [facility] Work Phone: 05-17-2010 13:12-0500 BP Diastolic 78 mm[Hg] Sinai Ward RN [facility] Work Phone: Comment on above: Patient Position: Sitting; Cuff Location : Left Arm; Cuff Size: Standard 05-17-2010 13:12-0500 BP Systolic 110 mm[Hg] Sinai Ward RN [facility] Work Phone: Comment on above: Patient Position: Sitting; Cuff Location : Left Arm; Cuff Size: Standard 05-17-2010 13:12-0500 BSA (Body Surface Area) 1.85 m2 Sinai Ward RN [facility] Work Phone: 05-17-2010 13:12-0500 Height 175.26 cm Sinai Ward RN [facility] Work Phone: 05-17-2010 13:12-0500 Pulse (Heart Rate) 60 /min Sinai Ward RN [facility] Work Phone: Comment on above: Pattern: Regular 05-17-2010 13:12-0500 Respiratory Rate 20 /min Sinai Ward RN [facility] Work Phone: Comment on above: Pattern: Unlabored 05-17-2010 13:12-0500 Weight 69.97 kg Claudia Sin [facility] Work Phone: Encounters Encounter Date Encounter Type Care Provider Facility Start: 12-22-2023 [facility] Facility :[facility] Start: 11-25-2023 End: 11-25-2023 [facility] Facility:[facility] [place] Start: 11-25-2023 End: 11-25-2023 [facility] Facility:[facility] Start: 11-13-2022 End: 11-13-[address] Becky Pereyra Work Phone: [facility] Work Phone: Start: 11-13-2022 End: 11-13-[address] Becky Pereyra Work Phone: [facility] Work Phone: Start: 07-24-2022 End: 08-07-2022 Office outpatient visit 10 minutes Jenni Greene CNP Work Phone: [facility] Start: 07-23-2022 ambulatory Jenni Greene CNP [facility] Start: 05-15-2022 End: 05-17-2022 Office outpatient new 30 minutes Jenni Greene CNP Work Phone: [facility] Start: 05-15-2022 Review Jenni Greene CNP Work Phone: [facility] Start: 10-02-2021 End: 10-02-2021 Patient encounter procedure No Primary Care Physician [facility]-Laboratory, Specimen Start: 10-02-2021 End: 10-02-2021 Patient encounter procedure No Primary Care Physician [facility] Start: 07-30-2021 Patient encounter status No Primary Care Physician [facility] Work Phone: Start: 07-30-2021 End: 07-30-2021 Encounter for general adult medical examination without abnormal findings No Primary Care Physician [facility] Start: 07-30-2021 End: 07-30-2021 Patient encounter procedure No Primary Care Physician [facility] Start: 09-16-2018 End: 09-16-2018 Office outpatient visit 25 minutes Claudia Holman [facility] Start: 09-02-2018 Review Claudia Jacques [facility] Start: 09-02-2018 End: 09-02-2018 Office outpatient new 45 minutes Claudia Holman [facility] Start: 03-14-2011 End: 03-14-2011 Patient encounter procedure Claudia Sin [facility] Start: 03-12-2011 End: 03-12-2011 Patient encounter procedure Claudia Sin [facility] Start: 10-19-2010 End: 10-19-2010 Phone Encounter Claudia Sin [facility] Start: 07-25-2010 End: 07-25-2010 Annotation/Addendum Claudia Sin [facility] Start: 06-13-2010 End: 06-13-2010 Patient encounter procedure Claudia Sin [facility] Start: 05-21-2010 End: 05-21-2010 Phone Encounter Claudia Sin [facility] Start: 05-17-2010 End: 05-17-2010 Patient encounter procedure Claudia Sin [facility] Procedures Date Procedure Procedure Detail Performing Clinician Fidelina Bucio Comment on above: 2001 Fidelina Bucio Comment on above: 2001 Fidelina Stearns LP N Comment on above: 2001 Fidelina Godinez MA Comment on above: 2001 Foot sx Neisha Gravius Comment on above: 6th grade Foot sx Neisha Gravius Comment on above: 6th grade Foot sx Alecia Jinny Veronica Comment on above: 6th grade Foot sx Zulma Godinez MA Comment on above: 6th grade Vaginal Delivery Neisha Grav ius [employer] Comment on above: Vaginal Delivery Alecia Sara friedman LPN Comment on above: [id number] Vaginal Delivery Zulma veronica MA Comment on above: Vaginal delivery of fetus Ja smin Gravius Comment on above: [id number] Vaginal delivery of fetus Ja smin Gravius Comment on above: [id number] Plan of Treatment Date Care Activity Detail Author Start: 11-13-2022 Dehydroepiandrosterone sulfate (DHEA-S) [Mass/volume] in Serum or Plasma [facility] Start: 11-13-2022 Testosterone Free [Mass/volume] in Serum or Plasma [facility] Start: 07-24-2022 Procedure Education Eprescribed prescriptions (G8553) [facility]; [facility] Work Phone: Start: 05-17-2022 Provider Instructions for Treatment [facility]; [facility] Work Phone: Start: 05-15-2022 Assay of thyroid stimulating hormone tsh TSH (THYROID STIMULATING HORMONE) (31469) [facility]; [facility] Work Phone: Start: 05-15-2022 Blood count complete auto&auto difrntl wbc CBC with auto diff (95475) [facility]; [facility] Work Phone: Start: 05-15-2022 Comprehensive metabolic panel METABOLIC PANEL, COMPREHENSIVE (72087) [facility]; [facility] Work Phone: Start: 05-15-2022 Lipid panel LIPID PANEL (52783) [facility]; [facility] Work Phone: Start: 05-15-2022 Procedure Education Eprescribed prescriptions (G8553) [facility]; [facility] Work Phone: Start: 05-15-2022 Provider Instructions for Treatment Follow up in 1 year or as needed [facility]; [facility] Work Phone: Start: 05-15-2022 25 hydroxy includes fractions if performed CALCIFEDIOL (02637) [facility]; [facility] Work Phone: Start: 10-02-2021 Liquid based cervical cytology screening [facility] Work Phone: Start: 07-30-2021 Patient referral [facility] Work Phone: Start: 09-16-2018 Procedure Education Eprescribed prescriptions (G8553) [facility] Work Phone: Start: 09-02-2018 Procedure Education Eprescribed prescriptions (G8553) [facility] Work Phone: Start: 09-02-2018 Provider Instructions for Treatment Follow up in 2 weeks [facility] Work Phone: Start: 03-14-2011 Provider Instructions for Treatment [facility] Work Phone: Start: 03-12-2011 Culture bct isol&prsmptv id isolate ea urine URINE MEHRAN CULTURE-IDENTIFICATN (26898) [facility] Work Phone: Start: 03-12-2011 25 hydroxy includes fractions if performed CALCIFIDIOL (66454) VIT D 25 [facility] Work Phone: Start: 03-12-2011 Fluorescent nonnfct agt antb screen ea antibody FLURESCNT ANTIB SCRN EA (61393) celiac profile [facility] Work Phone: Start: 03-12-2011 Immunoassay analyte qual/semiqual multiple step IMMUNOASSAY, ANALYTE (NON-INFECT) (31445) celiac profile [facility] Work Phone: Start: 03-12-2011 Protein mass conc IMMUNOASSAY, ANALYTE (NON-INFECT) (76566) celiac profile [facility] Work Phone: Start: 03-12-2011 Assay of gammaglobulin iga igd igg igm each IGA/IGD/IGG/IGM-EACH (94967) celiac profile [facility] Work Phone: Start: 03-12-2011 Assay of thyroid stimulating hormone tsh TSH (74674) [facility]; [facility] Work Phone: Start: 03-12-2011 Thyrotropin Qn TSH (89239) [facility] Work Phone: Start: 03-12-2011 Blood count complete auto&auto difrntl wbc CBC, Platelets & Auto Diff (44702) [facility] Work Phone: Start: 03-12-2011 Comprehensive metabolic panel Metabolic Panel, Comprehensive (85359) [facility] Work Phone: Start: 07-25-2010 25 hydroxy includes fractions if performed CALCIFIDIOL (24843) VIT D 25 [facility] Work Phone: Start: 06-13-2010 Provider Instructions for Treatment [facility] Work Phone: Start: 06-13-2010 Lipid panel LIPID PANEL (80631) [facility] Work Phone: Start: 05-17-2010 25 hydroxy includes fractions if performed CALCIFIDIOL (48697) VIT D 25 [facility] Work Phone: Start: 05-17-2010 Assay of folic acid serum Folate (74386) [facility] Work Phone: Start: 05-17-2010 Assay of thyroid stimulating hormone tsh TSH (13807) [facility]; [facility] Work Phone: Start: 05-17-2010 Cobalamin (Vitamin B12) mass conc VITAMIN B-12 (CYANOCOBALAMIN) (06667) [facility] Work Phone: Start: 05-17-2010 Cyanocobalamin vitamin b-12 VITAMIN B-12 (CYANOCOBALAMIN) (19486) [facility]; [facility] Work Phone: Start: 05-17-2010 Sedimentation rate rbc non-automated SED RATE ERYTHROCYTE (69524) [facility] Work Phone: Start: 05-17-2010 Thyrotropin Qn TSH (21138) [facility] Work Phone: Start: 05-17-2010 Blood count complete automated CBC (AUTO) (45660) [facility] Work Phone: Start: 05-17-2010 C-reactive protein C-REACTIVE PROTEIN (97592) [facility]; [facility] Work Phone: Start: 05-17-2010 Comprehensive metabolic panel METABOLIC PANEL, COMPREHENSIVE (38222) [facility] Work Phone: Start: 05-17-2010 CRP mass conc C-REACTIVE PROTEIN (15820) [facility] Work Phone: Start: 05-17-2010 Rheumatoid factor quantitative RHEUMATOID FACTOR-QUANT (36410) [facility] Work Phone: Start: 05-17-2010 Antinuclear antibodies kalen KALEN (ANTINUCLEAR ANTIBODY) (98365) [facility]; [facility] Work Phone: Start: 05-17-2010 Nuclear Ab IF titer (S) KALEN (ANTINUCLEAR ANTIBODY) (55426) [facility] Work Phone: Start: 05-17-2010 Provider Instructions for Treatment [facility] Work Phone: Path report.final Dx Spec [facility] Work Phone: Patient referral [facility] Work Phone: [facility] Work Phone: [facility] Work Phone: [facility] Work Phone: [facility] Work Phone: [facility]; [facility] Work Phone: [facility]; [facility] Work Phone: Payers Date Payer Category Payer Self-pay [id number] 2022 Unknown [id number] 2010 Unknown [id number] 1975 Unknown [id number] Unknown Medical [facility] Unknown [id number] Unknown [id number] Unknown [id number] Social History Date Type Detail Facility Alcohol Use: Former smoker [facility] Work Phone: Caffeine Use [facility] Work Phone: Comment on above: qd Exercise History: Exercises occasionally. [facility] Work Phone: Living Situation: Lives with spouse. [facility] Work Phone: Number of Child (age 0-17) Dependents: 3. [facility] Work Phone: Pets/Animals: Cat. [facility] Work Phone: Tobacco use: Former smoker. C urrent every day smoker. Cigarettes per day. [facility] Work Phone: Comment on above: 3 per day Start: 07-30-2021 End: 11-13-2022 Tobacco smoking status NHIS Unknown if ever smoked [facility] Start: 1975 Sex Assigned At Female [facility] Alcohol Use: Alcohol Use: [facility]; [facility] Work Phone: Comment on above: Quit October 2020 Exercise History: Exercise History: Compr [facility]; [facility] Work Phone: Living Situation: Living Situation: [facility]; [facility] Work Phone: Number of Child (age 0-17) Dependents: Number of Child (age 0-17) Dependents: [facility]; [facility] Work Phone: Pets/Animals: Pets/Animals: [facility]; [facility] Work Phone: End: 05-15-2022 Tobacco use: Tobacco use: [facility]; [facility] Work Phone: Comment on above: 3 per day Tobacco Use: Tobacco Use: [facility]; [facility] Work Phone: Comment on above: Quit October 2020 Clinical Notes 09-05-2020 to 09-21-2020 Note Date & Type Note Facility 09-21-2020 Note HNO ID: [id number] Author: Emily Ingram MD Service: ? Author Type: ? Type: Progress Notes Filed: 09/21/2020 9:04 AM Note Text: Tere is a 44 year old who presents for an annual gynecologic exam without complaints. Menses: cycles every 30 days and 4-5 days of flow. Contraception: vasectomy HPV vaccine: No Last Pap: 09/27/2019 normal HPV: 09/23/2019 negative History of abnormal pap: yes, leep 1976 Last mammogram: 2019 Sexually active: Yes OB History T2 L3 SAB2 TAB0 Ectopic0 Multiple0 Live Births3 PAST MEDICAL HISTORY Diagnosis Date - Abnormal glandular Papanicolaou smear of cervix Abn. Pap smear (cervix) - Congenital musculoskeletal deformity of spine SCOLIOSIS - Unspecified , without mention of complication, unspecified x-2 (Miscarriages) PAST SURGICAL HISTORY Procedure Laterality Date - CERVIX UTERI CONIZA LP ELCTRO EXCI 1996 LEEP-Cervix/ HPV VIRUS - COLPOSCOPY (VAGINOSCOPY) Colposcopy - DANMAVIS, DIAG AND/OR THERAPEUTIC 08/23 Dilation AND curettage - PAST SURGICAL HISTORY OF 1986 BILATERAL FOOT SURGERY FAMILY HISTORY Problem Relation Age of Onset - Coronary Artery Disease Father - Hypertension Father - Psychiatry Father Depression - Cancer Father Lung - Hypertension Maternal Grandmother - other (Dementia) Maternal Grandmother - Coronary Artery Disease Maternal Grandfather - Cancer Paternal Grandmother lung-smoker - Hypertension Paternal Grandmother SOCIAL HISTORY Social History Tobacco Use - Smoking status: Current Every Day Smoker Years: 7.00 Last attempt to quit: 06/10/2006 Years since quittin.2 - Smokeless tobacco: Never Used - Tobacco comment: couple daily Vaping Use - Vaping Use: Never used Substance Use Topics - Alcohol use: Yes Comment: 7-8 beers/sitting, quit altogether 08/19/2009. - Drug use: No REVIEW OF SYSTEMS Abdomen: No abdominal pain, nausea, vomiting, diarrhea, or constipation. No bloating, early satiety, indigestion, or increased flatulence. Bladder: No dysuria, gross hematuria, urinary frequency, urinary urgency, or incontinence. Breast: No breast lumps, nipple d/c, overlying skin changes, redness or skin retraction. Allergies and current medication updated:Yes EXAM: BP 114/68 Ht 5' 9 (1.75m) Wt 171 lb (77.6kg) LMP 09/18/2020 BMI 25.24 kg/(m2). GENERAL: pleasant, female in no apparent distress HEENT: Normocephalic, atraumatic, mucus membranes moist and no lesions NECK: Supple, full range of motion, no adenopathy and thyroid normal DERMATOLOGY: Normal, without lesions, non-icteric and non-hirsute BREAST: soft, non-tender, symmetric, no dominant mass, normal nipple-areolar complex, no lymphadenopathy and no nipple discharge CHEST: Normal inspiratory effort ABDOMEN: soft, non-tender and no masses PELVIC: external genitalia normal, normal Bartholin's glands, urethra, [place]'s glands, no vulvar lesions, no cervical lesions, good vaginal support, physiologic discharge present, normal appearing perineal body and perianal region BIMANUAL: uterus normal size, shape and consistency, no adnexal masses and non-tender RECTOVAGINAL: deferred. NEURO: alert and oriented x3,exam grossly non-focal EXTREMITIES: normal ASSESSMENT/PLAN: 1) Health maintenance: Pap/HPV up to date. Mammogram ordered. 2) Contraception: vasectomy. Contraceptive options reviewed and information provided. 3) STD screening: Declined STD check. 4) Follow up one year or sooner as needed Emily Ingram MD [facility] 09-05-2020 Note HNO ID: [id number] Author: Aure Olsen APRN.CARTOGRAPHIC DESIGNER Service: ? Author Type: Nurse Practitioner Type: Progress Notes Filed: 09/05/2020 2:53 PM Note Text: Subjective The history is provided by the patient. No wood science professor was used. BRIE Bansal is a 44 year old female who presents today for CC of left ear pain. This started over the past week and is not going away. She is also having rhinorrhea and mild nasal congestion. She is using OTC allergy pill 10 mg, not sure of name. H/o cerumen impaction BP 136/84 Pulse (!) 59 Temp 36.4 ?C (97.5 ?F) (Tympanic) Resp 18 Wt 78.4 kg (172 lb 12.8 oz) LMP 09/10/2019 (Exact Date) SpO2 98% BMI 25.52 kg/m? Social History Tobacco Use - Smoking status: Current Every Day Smoker Years: 7.00 Last attempt to quit: 06/10/2006 Years since quittin.2 - Smokeless tobacco: Never Used - Tobacco comment: couple daily Vaping Use - Vaping Use: Never used Substance Use Topics - Alcohol use: Yes Comment: 7-8 beers/sitting, quit altogether 08/19/2009. - Drug use: No PAST MEDICAL HISTORY Diagnosis Date - Abnormal glandular Papanicolaou smear of cervix Abn. Pap smear (cervix) - Congenital musculoskeletal deformity of spine SCOLIOSIS - Unspecified , without mention of complication, unspecified x-2 (Miscarriages) I have confirmed and edited as necessary, the [facility] Review of Systems Constitutional: Negative for chills and fever. HENT: Positive for ear pain (left). Negative for congestion (mild rhinorrhea), sinus pain and sore throat. Respiratory: Negative for cough, sputum production, shortness of breath and wheezing. Cardiovascular: Negative for chest pain. Musculoskeletal: Negative for myalgias. Neurological: Negative for headaches. Objective Physical Exam Vitals and nursing note reviewed. HENT: Right Ear: There is impacted cerumen. Left Ear: There is impacted cerumen. Ears: Comments: Lavage done of both ears by Francheska Rajan MA, patient tolerated well, unable to see TM - Pulmonary: Effort: Pulmonary effort is normal. Skin: General: Skin is warm and dry. Neurological: Mental Status: She is alert and oriented to person, place, and time. Psychiatric: Mood and Affect: Affect normal. ASSESSMENT/PLAN: 1. Left ear pain - ICD9: 388.70, ICD10: H92.02 (primary diagnosis) Appears to be from wax impacation Tylenol (generic acetaminophen) 500 mg-2 tabs every 8 hrs. as needed for fever and aches Ibuprofen 600 mg (3-200mg tablets) every 6 hours Zyrtec 10 mg By mouth daily at bedtime Flonase or Nasonex 2 sprays in each nostril once a day 2. Bilateral impacted cerumen - ICD9: 380.4, ICD10: H61.23 Use may use OTC Debrox or Cerumenex once a month for maintenance. Avoid inserting Q-tips into your ears. Follow up with your ENT as needed if no improvement or worsening symptoms. Diagnosis and treatment plan were discussed and questions were answered to the patient's satisfaction. Pt acknowledged understanding of concepts and follow up plan. Specific signs and symptoms that would indicate the need for higher level of care were discussed in detail warranting prompt ER evaluation. Aure Olsen APRN.CARTOGRAPHIC DESIGNER [facility] Evaluation note Diagnosis Onset Date Health care maintenance acut e Vitamin D deficiency acute Anxiety and depression chron ic [facility] Work Phone: Evaluation note* Diagnosis Onset Date Resolution Status Vitamin D deficiency acute Anxiety and depression chron ic Anxiety and depression [facility] ic Encounter for routine gynecological examination noneactive [facility] Work Phone: Evaluation note* Diagnosis Onset Date Resolution Status Hirsutism acute Anxiety and depression [place] [facility] En[facility] for [facility] gynecological examination noneactive [facility] Work Phone: [facility] Phone[facility] Work Phone: Instructions* Name Dates Details How to access health informa tion online Indication:Smoker Start:16-Sep-2018 Instruction Type:Patient Education How to access health informa tion online - Detail Indication:Smoker Start:16-Sep-2018 Instruction Type:Patient Education Patient Instructions Indication:Smoker Start:16-Sep-2018 Instruction Type:Provider Instructions for Treatment How to access health informa tion online Indication:Smoker Start:02-Sep-2018 Instruction Type:Patient Education Patient Instructions Indication:Smoker Start:02-Sep-2018 Instruction Type:Provider Instructions for Treatment [facility] Work Phone: instructions* Name Dates Details How to access health informa tion online Indication:Smoker Start:16-Sep-2018 Instruction Type:Patient Education How to access health informa tion online - Detail Indication:Smoker Start:16-Sep-2018 Instruction Type:Patient Education Patient Instructions Indication:Smoker Start:16-Sep-2018 Instruction Type:Provider Instructions for Treatment How to access health informa tion online Indication:Smoker Start:02-Sep-2018 Instruction Type:Patient Education Patient Instructions Indication:Smoker Start:02-Sep-2018 Instruction Type:Provider Instructions for Treatment [facility] Work Phone: instructions* Name Dates Details Patient Instructions Indication:Depressive disorder Start:15-May-2022 Instruction Type:Provider Instructions for Treatment How to Access Health Informa tion Online using Patient Portal and [employer] Apps Indication:Depressive disorder Start:15-May-2022 Instruction Type:Patient Education How to access health informa tion online Indication:Smoker Start:16-Sep-2018 Instruction Type:Patient Education How to access health informa tion online - Detail Indication:Smoker Start:16-Sep-2018 Instruction Type:Patient Education Patient Instructions Indication:Smoker Start:16-Sep-2018 Instruction Type:Provider Instructions for Treatment How to access health informa tion online Indication:Smoker Start:02-Sep-2018 Instruction Type:Patient Education Patient Instructions Indication:Smoker Start:02-Sep-2018 Instruction Type:Provider Instructions for Treatment [facility] Work Phone: Instructions* Name Dates Details Diet, low fat/cholesterol Indication:Screening for hyperlipidemia Start:17-May-2022 Instruction Type:Provider Instructions for Treatment Patient Instructions Indication:Depressive disorder Start:15-May-2022 Instruction Type:Provider Instructions for Treatment How to Access Health Informa tion Online using Patient Portal and [employer] Apps Indication:Depressive disorder Start:15-May-2022 Instruction Type:Patient Education How to access health informa tion online Indication:Smoker Start:16-Sep-2018 Instruction Type:Patient Education How to access health informa tion online - Detail Indication:Smoker Start:16-Sep-2018 Instruction Type:Patient Education Patient Instructions Indication:Smoker Start:16-Sep-2018 Instruction Type:Provider Instructions for Treatment How to access health informa tion online Indication:Smoker Start:02-Sep-2018 Instruction Type:Patient Education Patient Instructions Indication:Smoker Start:02-Sep-2018 Instruction Type:Provider Instructions for Treatment [facility] Work Phone: Instructions* Name Dates Details Patient Instructions Indication:Former smoker Start:24-Jul-2022 Instruction Type:Provider Instructions for Treatment How to Access Health Informa tion Online using Patient Portal and [employer] Apps Indication:Former smoker Start:24-Jul-2022 Instruction Type:Patient Education Diet, low fat/cholesterol Indication:Screening for hyperlipidemia Start:17-May-2022 Instruction Type:Provider Instructions for Treatment Patient Instructions Indication:Depressive disorder Start:15-May-2022 Instruction Type:Provider Instructions for Treatment How to Access Health Informa tion Online using Patient Portal and [employer] Apps Indication:Depressive disorder Start:15-May-2022 Instruction Type:Patient Education How to access health informa tion online Indication:Smoker Start:16-Sep-2018 Instruction Type:Patient Education How to access health informa tion online - Detail Indication:Smoker Start:16-Sep-2018 Instruction Type:Patient Education Patient Instructions Indication:Smoker Start:16-Sep-2018 Instruction Type:Provider Instructions for Treatment How to access health informa tion online Indication:Smoker Start:02-Sep-2018 Instruction Type:Patient Education Patient Instructions Indication:Smoker Start:02-Sep-2018 Instruction Type:Provider Instructions for Treatment [facility] Work Phone: Instructions Name Dates Details How to access health informa tion online Indication:Smoker Start:02-Sep-2018 Instruction Type:Patient Education Patient Instructions Indication:Smoker Start:02-Sep-2018 Instruction Type:Provider Instructions for Treatment Name Dates Details How to access health informa tion online Indication:Smoker Start:02-Sep-2018 Instruction Type:Patient Education Patient Instructions Indication:Smoker Start:02-Sep-2018 Instruction Type:Provider Instructions for Treatment Name Dates Details How to access health informa tion online Indication:Smoker Start:16-Sep-2018 Instruction Type:Patient Education How to access health informa tion online - Detail Indication:Smoker Start:16-Sep-2018 Instruction Type:Patient Education Patient Instructions Indication:Smoker Start:16-Sep-2018 Instruction Type:Provider Instructions for Treatment How to access health informa tion online Indication:Smoker Start:02-Sep-2018 Instruction Type:Patient Education Patient Instructions Indication:Smoker Start:02-Sep-2018 Instruction Type:Provider Instructions for Treatment Summary Purpose Family History No Family History Records Found Relationship Condition Age at Onset Recorded Date/T chloe grandfather Myocardial infarction Unknown grandmother Malignant neoplasm of breast Unknown mother Hyperlipidemia Unknown father Hypertension Unknown Cardiac disease Unknown Myocardial infarction Unknown Malignant neoplasm Unknown Relationship Condition Age at Onset Recorded Date/T chloe grandfather Myocardial infarction Unknown grandmother Malignant neoplasm of breast Unknown Malignant neoplasm of colon Unknown mother Hyperlipidemia Unknown father Hypertension Unknown Cardiac disease Unknown Myocardial infarction Unknown Malignant neoplasm Unknown Advance Directives No Advanced Directives Records FoundNo Advanced Directives Records FoundNo Advanced Directives Records Found Chief Complaint and Reason for Visit Chief Complaint EST CARE - NPP SENT Reason for Visit Health care [facility] Vitamin D deficiency Anxiety and depression Chief Complaint EST CARE - NPP SENT Annual (PATIENT CASE COORDINATOR) Reason for Visit Vitamin D deficiency Anxiety and depression Anxiety and depression Encounter for routine gynecological examination Chief Complaint Annual (PATIENT CASE COORDINATOR) Reason for Visit Hirsutism Anxiety and depression Encounter for routine gynecological examination Additional Source Comments INFORMATION SOURCE (unrecogn ized section and content) DATE CREATED AUTHOR 05/02/2021 [facility] DATE CREATED AUTHOR AUTHOR'S ORGANIZ ATION 07/24/2022 [facility] DATE CREATED AUTHOR AUTHOR'S ORGANIZ ATION 12/22/2023 [facility] Goals (unrecognized section and content) Goals may be documented in a n alternate sectionGoals may be documented in an alternate sectionGoals may be documented in an alternate section Care Teams (unrecognized sec tion and content) Team Status: Active Member Role Status Dates No Primary Care Physician Family Provider Active Dr. Becky Pereyra MD Primary Care Provider Active Team Status: Inactive Member Role Status Dates Dr. Becky Pereyra MD Primary Care Provider, Refer ring Provider Active Beryl Alexis NP, NP-C Attending Provider Active Team Status: Inactive Member Role Status Dates Dr. Becky Pereyra MD Primary Care Provider Active Beryl Alexis NP, NP-C Attending Provider, Referring Provider Active FOR RECORDS PERTAINING TO PATIENTS WHO ARE OR HAVE BEEN ENROLLED IN A CHEMICAL DEPENDENCY/SUBSTANCEABUSE PROGRAM, SOME INFORMATION MAY BE OMITTED. This clinical summary was aggregated from multiple sources. Caution should be exercised in using it in the provision of clinical care. This summary normalizes information from multiple sources, and as a consequence, information in this document may materially change the coding, format and clinical context of patient data. In addition, data may be omitted in some cases. CLINICAL DECISIONS SHOULD BE BASED ON THE PRIMARY CLINICAL RECORDS. [employer] provides no warranty or guarantee of the accuracy or completeness of information in this document.
== END | disposition home or self-care (01) ==
PROVIDERS: PCP Nurse Practitioner Family; Referring Provider Nurse Practitioner Family; Visit Provider Nurse Practitioner Family
DX: M25.561 Pain in right knee (principal); M25.521 Pain in right elbow; E87.6 Hypokalemia; Z86.2 Personal history of diseases of the blood and blood-forming organs and certain disorders involving the immune mechanism
CPT/HCPCS: 36415; 73080; 73564; 80053; 85025

== ENCOUNTER → 2024-12-22 | Outpatient (CLI) | payer BC, SELFPAY ==
--- NOTE | 2024-12-22 12:30 | BI_ITS ---
EXAM: SCRN MAMM (CAD)W/GABINO BILAT DATE: 12/22/2024 CLINICAL HISTORY: F, Age 49 y/o , SCREEN FOR BREAST CANCER Routine screening mammogram TECHNIQUE: Procedure Code: [id number] Modality: MG Procedure: SCRN MAMM (CAD)W/GABINO BILAT COMPARISON: Prior exam(s) dated 12/22/2023. FINDINGS: TISSUE DENSITY: There are scattered areas of fibroglandular density. Bilateral Breast Mammographic Findings: No significant masses, calcifications or other abnormalities are identified. No interval change BI/SCRN MAMM (CAD)W/GABINO BILAT IMPRESSION: Stable screening mammogram OVERALL FINAL ASSESSMENT BI-RADS 1: NEGATIVE. RECOMMENDATION: Routine annual follow-up in 1 Year Additional Recommendation none A letter with findings and recommendations will be mailed to the patient. Reading Location: [id number]
--- NOTE | 2024-12-22 12:30 | BI_ITS ---
EXAM: SCRN MAMM (CAD)W/GABINO BILAT DATE: 12/22/2024 CLINICAL HISTORY: F, Age 49 y/o , SCREEN FOR BREAST CANCER Routine screening mammogram TECHNIQUE: Procedure Code: [id number] Modality: MG Procedure: SCRN MAMM (CAD)W/GABINO BILAT COMPARISON: Prior exam(s) dated 12/22/2023. FINDINGS: TISSUE DENSITY: There are scattered areas of fibroglandular density. Bilateral Breast Mammographic Findings: No significant masses, calcifications or other abnormalities are identified. No interval change BI/SCRN MAMM (CAD)W/GABINO BILAT IMPRESSION: Stable screening mammogram OVERALL FINAL ASSESSMENT BI-RADS 1: NEGATIVE. RECOMMENDATION: Routine annual follow-up in 1 Year Additional Recommendation none A letter with findings and recommendations will be mailed to the patient. Reading Location: [id number]
== END | disposition home or self-care (01) ==
PROVIDERS: PCP Internal Medicine; Referring Provider Obstetrics & Gynecology; Visit Provider Obstetrics & Gynecology
DX: Z12.31 Encounter for screening mammogram for malignant neoplasm of breast (principal)
CPT/HCPCS: 77063; 77067

== ENCOUNTER → 2025-02-02 | Outpatient (CLI) | payer BC, SELFPAY ==
[2025-02-02 12:39] LABS: Hematocrit 40.4 % (37-47); Hemoglobin 13.7 g/dL (12.0-15.0); Immature Granulocytes Count 0.030 X10^3/uL (0.0-0.0); Mean Corp Hgb Conc 33.9 g/dL (32-36); Mean Corpuscular Volume 91.8 fL (81-99); Mean Platelet Vol. 10.8 fl (6.2-12.0); NRBC Flagged by Analyzer 0 % (0-5); Platelet Count 251 K/mm3 (150-450); RBC Distribution Width CV 11.9 % (11.6-14.6); RBC Distribution Width SD 39.9 fl (35.1-43.9); Red Blood Count 4.40 M/mm3 (4.2-5.4); White Blood Count 7.5 K/mm3 (4.4-11.0)
[2025-02-02 13:09] LABS: AST(SGOT) 20 U/L (<=31); Alanine Aminotransfer ALT/SGPT 15 U/L (<=34); Albumin, Serum 4.7 g/dL (3.5-5.0); Alkaline Phosphatase 65 U/L (35-104); Anion Gap 11 (5-15); BUN 14 mg/dL (4-19); BUN/Creat Ratio 18.9 RATIO (10-20); Calcium,Total 9.6 mg/dL (7.6-11.0); Carbon Dioxide 26.1 mmol/L (21.0-32.0); Chloride 106 mmol/L (98-108); Globulin 2.8 g/dL (2.2-4.2); Glucose 97 mg/dL (70-99); Potassium 4.0 mmol/L (3.3-5.1)
== END | disposition home or self-care (01) ==
LOC: LAB 11:35
PROVIDERS: PCP Internal Medicine; Referring Provider Internal Medicine; Visit Provider Internal Medicine
DX: R79.89 Other specified abnormal findings of blood chemistry (principal)
CPT/HCPCS: 36415; 80053; 85025

== ENCOUNTER → 2025-02-08 | Outpatient (CLI) | payer BC, SELFPAY ==
[2025-02-08 12:47] LABS: Cholesterol 230 mg/dL (<=200); Glucose 85 mg/dL (70-99); Low Density Lipoprotein Calc. 135 mg/dL; Triglycerides 65 mg/dL; Very Low Density Lipoprotein 13 mg/dL (5-40); Vitamin D,25 Hydroxy 33.5 ng/mL (30-100); cholesterol:hdl ratio screen 2.73
[2025-02-10 08:09] LABS: Anti-Chromatin <0.2 AI (0.0-0.9); Anti-Jo <0.2 AI (0.0-0.9); Anti-dsDNA Ab <1 IU/mL (0-9); SJOGREN'S Anti-SS-A test < 0.2 AI (0.0-0.9); SJOGREN'S Anti-SS-B test < 0.2 AI (0.0-0.9)
== END | disposition home or self-care (01) ==
PROVIDERS: PCP Internal Medicine; Referring Provider Obstetrics & Gynecology; Visit Provider Obstetrics & Gynecology
DX: N95.1 Menopausal and female climacteric states (principal); M25.50 Pain in unspecified joint; Z13.220 Encounter for screening for lipoid disorders; Z13.1 Encounter for screening for diabetes mellitus; Z13.29 Encounter for screening for other suspected endocrine disorder
CPT/HCPCS: 36415; 80061; 82306; 82947; 84443; 86225; 86235